=== PATIENT | female | born 1935 | race Caucasian/White ===

== ENCOUNTER → 2016-07-03 | Outpatient (CLI) | payer BC ==
[~2016-07-03] MED LIST: ACET-1311 PO; ASPCH81X PO; HYDR12.55 PO; SULF800T23 PO
--- NOTE | 2016-07-03 16:13 | MAMMOGRAPHY REPORT ---
BILATERAL DIGITAL SCREENING MAMMOGRAM TOMOSYNTHESIS WITH CAD: 07/03/2016 CLINICAL HISTORY: Routine screening. Patient has no complaints. TECHNIQUE: Breast tomosynthesis in addition to standard 2D mammography was performed. Current study was also evaluated with a Computer Aided Detection (CAD) system. COMPARISON: Comparison is made to exams dated: 06/26/2015 mammogram, 06/24/2014 mammogram, 05/05/2013 mammogram, 11/06/2012 mammogram, 05/05/2012 ultrasound, and 05/01/2012 mammogram - [facility]. BREAST COMPOSITION: There are scattered areas of fibroglandular density in both breasts. FINDINGS: Linear scar markers overlie the upper outer quadrant of each breast. There is expected ar chitectural distortion and associated surgical clips in the upper outer posterior right breast, yves ting the site of prior lumpectomy. Architectural distortion is less evident in the left upper outer quadrant. There is a stable benign intramammary lymph node in the superior posterior left breast o n the MLO view. Scattered benign calcifications in the breasts. No new suspicious mass, architectur al distortion or cluster of microcalcifications is seen. IMPRESSION: ACR BI-RADS CATEGORY 1: NEGATIVE There is no mammographic evidence of malignancy. A 1 year screening mammogram is recommended. The p atient will receive written notification of the results. Approximately 10% of breast cancers are not detected with mammography. A negative mammographic repor t should not delay biopsy if a clinically suggestive mass is present. Chelsea Patrick M.D. ay/:07/03/2016 12:56:35 Knitter Hand: Rowena Noguera, [facility] letter sent: Normal 1/2 BI-RADS Code: ACR BI-RADS Category 1: Negative
== END | disposition home or self-care (01) ==
LOC: C.MAMM 10:10
PROVIDERS: ATTEND Family Medicine
DX: Z12.31 Encounter for screening mammogram for malignant neoplasm of breast (principal); Z85.3 Personal history of malignant neoplasm of breast; Z08 Encounter for follow-up examination after completed treatment for malignant neoplasm

== ENCOUNTER → 2017-07-04 | Outpatient (CLI) | payer BC ==
--- NOTE | 2017-07-07 07:41 | MAMMOGRAPHY REPORT ---
BILATERAL DIGITAL SCREENING MAMMOGRAM TOMOSYNTHESIS WITH CAD: 07/04/2017 CLINICAL HISTORY: Asymptomatic. Personal history of breast cancer. TECHNIQUE: Breast tomosynthesis in addition to standard 2D mammography was performed. Current study was also evaluated with a Computer Aided Detection (CAD) system. COMPARISON: Comparison is made to exams dated: 07/03/2016 mammogram, 06/26/2015 mammogram, 06/24/2014 ma mmogram, 05/05/2013 mammogram, 05/05/2012 mammogram, and 05/05/2012 ultrasound - [facility] enter. BREAST COMPOSITION: There are scattered areas of fibroglandular density in both breasts. FINDINGS: No suspicious masses, calcifications, or areas of architectural distortion are noted in ei ther breast. There has been no significant interval change compared to prior exams. There are stable postoperative changes in the right upper inner quadrant from prior lumpectomy. There is also mild p ostsurgical architectural distortion in the left upper outer quadrant which is stable. Scattered maxime ateral benign appearing calcifications are not significantly changed. IMPRESSION: ACR BI-RADS CATEGORY 2: BENIGN There is no mammographic evidence of malignancy. A 1 year screening mammogram is recommended. The pa tient will receive written notification of the results. Approximately 10% of breast cancers are not detected with mammography. A negative mammographic report should not delay biopsy if a clinically suggestive mass is present. Zainab Russell M.D. /:07/04/2017 14:52:20 Ladle Liner: Debbie TERRY)(Paty), [facility] letter sent: Normal 1/2 BI-RADS Code: ACR BI-RADS Category 2: Benign
== END | disposition home or self-care (01) ==
LOC: C.MAMM 09:52
PROVIDERS: ATTEND Family Medicine
DX: Z12.31 Encounter for screening mammogram for malignant neoplasm of breast (principal); Z85.3 Personal history of malignant neoplasm of breast

== ENCOUNTER → 2017-08-11 | Day surgery (SDC) | payer BC ==
[2017-07-18 12:44] VITALS: Ht 167.6 cm; Wt 100.0 kg
[~2017-08-11] VITALS: Ht 167.6 cm; Wt 100.0 kg
[~2017-08-11] MED LIST changes: +500ML BSS 0.3ML EPI 1:1000PF IRRIG ONE; +ACETAMINOPHEN 325 MG TAB PO PRN; +AMVISC PLUS 0.8ML SYRINGE INT OCU ONE; +ATROPINE SULFATE 0.1 MG/ML 5ML SYR IV PRN; +BRIMONIDINE TART 0.2% OP SOLN PER DROP CHARGE ONE; +BSS FLUSH ONE; +ENDOCOAT 0.85ML SYRINGE INT OCU ONE; +EpHEDrine SULFATE INJ 50 MG/ML AMP IV PRN; +EpINEphrine INJ 1MG/ML AMP 1 MG/ML AMP ONE; -HYDR12.55 PO; +HYDR25TA4 PO; +LACTATED RINGER'S 1000ML 500 ML IV SCH; +LIDOCAINE 4% OP SOLN DROP CHARGE ONE; +LIDOCAINE 4% OP SOLN DROP CHARGE OPR SCH; +LIDOCAINE HCL 1% MPF 2 ML VIAL ONE; +MIDAZOLAM HCL 1 MG/ML 2ML VIAL ONE; +MOXIFLOXACIN OPH SOLN PER DROP CHARGE ONE; +ONDANSETRON INJ 2 MG/ML 2 ML VIAL IV PRN; +POVIDONE-IODINE OP SOLN 30 ML BTL ONE; +PROPARACAINE 0.5% OP SOLN PER DROP CHARGE OPR SCH; -SULF800T23 PO; +TOBRAMYCIN/DEXAMETHASONE OPH OINT PER APPLN CHARGE ONE; +TRIA0.022 EXT; +TRMO2580 TOP
[2017-08-11] MEDS: PHENYLEPHRINE HCL 2.5% OP SOLN PER DROP CHARGE OPR SCH ×2 (08:35→08:40)
[2017-08-11] MEDS: TROPICAMIDE 1% OP SOLN PER DROP CHARGE OPR SCH ×2 (08:36→08:41)
[2017-08-11] MEDS: CYCLOPENTOLATE HCL 1% OP SOLN PER DROP CHARGE OPR SCH ×2 (08:37→08:42)
[2017-08-11] MEDS: KETOROLAC 0.5% OP SOLN PER DROP CHARGE OPR SCH ×2 (08:38→08:42)
[2017-08-11] MEDS: MOXIFLOXACIN OPH SOLN PER DROP CHARGE OPR SCH ×2 (08:39→08:51)
--- NOTE | 2017-08-11 09:12 | History & Physical Bridge - SC ---
H&P Re-Evaluation Bridge Note: I have examined the patient, reviewed the History & Physical and in the interval since the performance of the History & Physical I have noted the following changes of clinical significance: No changes noted
--- NOTE | 2017-08-11 10:03 | [facility] Operative Report ---
Operative Report Operative Date Aug 11, 2017. Pre-Operative Diagnosis Right Eye Cataract Post-Operative Diagnosis same Procedure(s) Performed Right Cataract Phacoemulsification With Intraocular Lens Implant Surgeon Dr. Leila Castañeda Professor Of Finance Surgeon(s) 0 Estimated Blood Loss 0 Findings cataract right eye Fluids see anesthesia record Specimens none Drains None Anesthesia Type MAC Complication(s) none Disposition no Recovery Room / PACU Indications decreased vision right eye Description of Procedure After informed consent was obtained in the holding area the patient was wheeled back to the operating room where cardiac monitoring leads and oxygen by nasal cannula was administered by Anesthesia. Gentle IV sedation was given, and the patient's right eye was prepped and draped in usual sterile fashion. A wire lid speculum was placed into the right eye and the operating microscope was swung into position. Using 0.12 forceps and a Supersharp blade a paracentesis port was made 2 o'clock hours away from the 9 o'clock position of the patient's right eye. 1% non-preserved Lidocaine was then injected into the anterior chamber for anesthesia. A 2.0 mm keratotome blade was then used to make a shelved clear corneal incision at the 9 o'clock position of the right eye. Amvisc was injected into the anterior chamber and a cystotome and Utrata forceps were used to perform a curvilinear capsulorrhexis. BSS on a hydrodissection cannula was used to hydrodissect the lens nucleus away from the capsular bag. The phacoemulsification handpiece was then used in a stop and chop fashion to remove the lens nucleus. The irrigation and aspiration handpiece was then used to remove the residual cortical material. Amvisc was injected into the capsular bag and anterior chamber and a Bausch & Lomb MX60 23.5 Diopter intraocular lens was injected into the capsular bag. Irrigation and aspiration handpiece was used to remove the residual viscoelastic material. The wounds were hydrated and noted to be watertight. The wire lid speculum was removed from the eye. Vigamox, Brimonidine, and TobraDex ointment were placed on the eye and it was shielded. It should be noted that EndoCoat was used extensively during the case to protect the cornea endothelium. DISPOSITION: The patient tolerated the procedure well and was wheeled to the post anesthesia care unit in stable condition. I attest to the content of the Intraoperative Record and any orders documented therein. Any exceptions are noted below. I attest to the content of the Intraoperative Record and any orders documented therein. Any exceptions are noted below.
[2017-08-11 10:05] VITALS: TEMP 36.4
--- NOTE | 2017-08-11 10:05 | Discharge Instructions-SurgCtr ---
Discharge Instructions Date of Service Aug 11, 2017. Visit Reason for Visit: Cataract Right Eye Discharge Discharge Diagnosis / Problem: cataract right eye Discharge Goals Goal(s): Improve function Activity Recommendations Activity Limitations: per Instructions/Follow-up section Lifting Limitations: no more than 5 pounds Anesthesia . Post Anesthesia Instructions: If you have had General Anesthesia or IV Sedation: * Do not drive today. * Resume driving when surgeon permits. * Do not make important decisions or sign legal documents today. * Call surgeon for: 1. Temperature elevations greater than 101 degrees F. 2. Uncontrollable pain. 3. Excessive bleeding. 4. Persistent nausea and vomiting. 5. Medication intolerance (nausea, vomiting or rash). * For nausea and vomiting use only clear liquids such as: tea, soda, bouillon until nausea subsides, then gradually increase diet as tolerated. * If you have any concerns or questions, call your surgeon's office. If physician is unavailable and it is an emergency, call 911 or go to the nearest emergency room. . Instructions / Follow-Up Instructions / Follow-Up ACTIVITY RECOMMENDATIONS: * Light activities * You may walk outside, read, watch television. * Mild irritation and blurred vision are common for the first few days, redness around the white part of the eye is common. MEDICATIONS: Resume previous medications unless instructed otherwise by your surgeon. Eye drops (today and tomorrow): Cipro - one drop in operative eye every 2 hours while awake Prednisolone 1% - one drop in operative eye every 2 hours while awake Ilevro - one drop operative eye 1 times daily SPECIAL CARE INSTRUCTIONS: * If any problems or concerns, please call Dr. Castañeda's office at . * Keep plastic shield taped over eye to sleep at night. * Keep plastic shield taped over eye except to administer eye drops. * Keep plastic shield on until office visit the following day. FOLLOW UP VISIT: Follow-up with Dr. Castañeda in the [place] office as scheduled. If not already scheduled, please call the office at . Diet Recommendations Home Diet: resume previous diet Procedures Procedures Performed: Right Cataract Phacoemulsification With Intraocular Lens Implant Pending Studies Studies pending at discharge: no Medical Emergencies . Who to Call and When: Medical Emergencies: If at any time you feel your situation is an emergency, please call 911 immediately. . Non-Emergent Contact Non-Emergency issues call your: Hand Shoe Cutter . . "Provider Documentation" section prepared by Elpidio Castañeda. .
[2017-08-11 10:43] VITALS: BP 160/76; PULSE 84; O2SAT 97
--- NOTE | 2017-08-11 10:43 | Anesthesia Progress Nt - [facility] ---
Anesthesia Post Op Note Date & Time Aug 11, 2017 at 10:43 Vital Signs Pain Intensity: 0 Vital Signs Past 12 Hours Date Time Temp Pulse Resp B/P (MAP) Pulse Ox O2 Delivery O2 Flow Rate FiO2 08/11/17 10:05 36.4 86 16 168/75 (106) 98 Room Air 08/11/17 08:27 36.9 82 18 175/75 (108) 99 Room Air Notes Mental Status: alert / awake / arousable, participated in evaluation Pt Amnestic to Procedure: Yes Nausea / Vomiting: adequately controlled Pain: adequately controlled Airway Patency, RR, SpO2: stable & adequate BP & HR: stable & adequate Hydration State: stable & adequate Anesthetic Complications: no major complications apparent
== END | disposition home or self-care (01) ==
LOC: X.SURG 07:56
PROVIDERS: ATTEND Ophthalmology
DX: H26.9 Unspecified cataract (principal); I10 Essential (primary) hypertension; Z90.89 Acquired absence of other organs; Z79.82 Long term (current) use of aspirin; Z79.899 Other long term (current) drug therapy; Z80.3 Family history of malignant neoplasm of breast

== ENCOUNTER → 2017-08-25 | Day surgery (SDC) | payer BC ==
[2017-08-22 14:04] VITALS: Ht 167.6 cm; Wt 100.0 kg
[~2017-08-25] VITALS: Ht 167.6 cm; Wt 100.0 kg
[~2017-08-25] MED LIST changes: -EpHEDrine SULFATE INJ 50 MG/ML AMP IV PRN; +LIDOCAINE 4% OP SOLN DROP CHARGE OPL SCH; -LIDOCAINE 4% OP SOLN DROP CHARGE OPR SCH; -ONDANSETRON INJ 2 MG/ML 2 ML VIAL IV PRN; +PROPARACAINE 0.5% OP SOLN PER DROP CHARGE OPL SCH; -PROPARACAINE 0.5% OP SOLN PER DROP CHARGE OPR SCH
[2017-08-25] MEDS: PHENYLEPHRINE HCL 2.5% OP SOLN PER DROP CHARGE OPL SCH ×2 (09:07→09:12)
[2017-08-25] MEDS: TROPICAMIDE 1% OP SOLN PER DROP CHARGE OPL SCH ×2 (09:08→09:13)
[2017-08-25] MEDS: CYCLOPENTOLATE HCL 1% OP SOLN PER DROP CHARGE OPL SCH ×2 (09:09→09:14)
[2017-08-25] MEDS: KETOROLAC 0.5% OP SOLN PER DROP CHARGE OPL SCH ×2 (09:10→09:15)
[2017-08-25] MEDS: MOXIFLOXACIN OPH SOLN PER DROP CHARGE OPL SCH ×2 (09:11→09:24)
--- NOTE | 2017-08-25 10:40 | [facility] Operative Report ---
Operative Report Operative Date Aug 25, 2017. Pre-Operative Diagnosis Left eye cataract Post-Operative Diagnosis Same as preop Procedure(s) Performed Left Cataract Phacoemulsification With Intraocular Lens Implant Surgeon Dr. Castañeda Slide Attendant Surgeon(s) None Estimated Blood Loss 0 mL Findings cataract left eye Fluids see anesthesia record Specimens None Drains None Anesthesia Type MAC Complication(s) none Disposition no Recovery Room / PACU Indications decreased vision left eye Description of Procedure After informed consent was obtained in the holding area the patient was wheeled back to the operating room where cardiac monitoring leads and oxygen by nasal cannula was administered by Anesthesia. Gentle IV sedation was given, and the patient's left eye was prepped and draped in usual sterile fashion. A wire lid speculum was placed into the left eye and the operating microscope was swung into position. Using 0.12 forceps and a Supersharp blade a paracentesis port was made 2 o'clock hours away from the 3 o'clock position of the patient's left eye. 1% non-preserved Lidocaine was then injected into the anterior chamber for anesthesia. A 2.0 mm keratotome blade was then used to make a shelved clear corneal incision at the 3 o'clock position of the left eye. Amvisc was injected into the anterior chamber and a cystotome and Utrata forceps were used to perform a curvilinear capsulorrhexis. BSS on a hydrodissection cannula was used to hydrodissect the lens nucleus away from the capsular bag. The phacoemulsification handpiece was then used in a stop and chop fashion to remove the lens nucleus. The irrigation and aspiration handpiece was then used to remove the residual cortical material. Amvisc was injected into the capsular bag and anterior chamber and a Bausch & Lomb MX60 23.5 Diopter intraocular lens was injected into the capsular bag. Irrigation and aspiration handpiece was used to remove the residual viscoelastic material. The wounds were hydrated and noted to be watertight. The wire lid speculum was removed from the eye. Vigamox, Brimonidine, and TobraDex ointment were placed on the eye and it was shielded. It should be noted that EndoCoat was used extensively during the case to protect the cornea endothelium. DISPOSITION: The patient tolerated the procedure well and was wheeled to the post anesthesia care unit in stable condition. I attest to the content of the Intraoperative Record and any orders documented therein. Any exceptions are noted below. I attest to the content of the Intraoperative Record and any orders documented therein. Any exceptions are noted below.
[2017-08-25 10:42] VITALS: TEMP 36.4
--- NOTE | 2017-08-25 10:42 | Discharge Instructions-SurgCtr ---
Discharge Instructions Date of Service Aug 25, 2017. Visit Reason for Visit: Cataract Left Eye Discharge Discharge Diagnosis / Problem: cataract left eye Discharge Goals Goal(s): Improve function Activity Recommendations Activity Limitations: per Instructions/Follow-up section Lifting Limitations: no more than 5 pounds Anesthesia . Post Anesthesia Instructions: If you have had General Anesthesia or IV Sedation: * Do not drive today. * Resume driving when surgeon permits. * Do not make important decisions or sign legal documents today. * Call surgeon for: 1. Temperature elevations greater than 101 degrees F. 2. Uncontrollable pain. 3. Excessive bleeding. 4. Persistent nausea and vomiting. 5. Medication intolerance (nausea, vomiting or rash). * For nausea and vomiting use only clear liquids such as: tea, soda, bouillon until nausea subsides, then gradually increase diet as tolerated. * If you have any concerns or questions, call your surgeon's office. If physician is unavailable and it is an emergency, call 911 or go to the nearest emergency room. . Instructions / Follow-Up Instructions / Follow-Up ACTIVITY RECOMMENDATIONS: * Light activities * You may walk outside, read, watch television. * Mild irritation and blurred vision are common for the first few days, redness around the white part of the eye is common. MEDICATIONS: Resume previous medications unless instructed otherwise by your surgeon. Eye drops (today and tomorrow): Cipro - one drop in operative eye every 2 hours while awake Prednisolone 1% - one drop in operative eye every 2 hours while awake Ilevro - one drop operative eye 1 times daily SPECIAL CARE INSTRUCTIONS: * If any problems or concerns, please call Dr. Castañeda's office at . * Keep plastic shield taped over eye to sleep at night. * Keep plastic shield taped over eye except to administer eye drops. * Keep plastic shield on until office visit the following day. FOLLOW UP VISIT: Follow-up with Dr. Castañeda in the [place] office as scheduled. If not already scheduled, please call the office at . Diet Recommendations Home Diet: resume previous diet Procedures Procedures Performed: Left Cataract Phacoemulsification With Intraocular Lens Implant Pending Studies Studies pending at discharge: no Medical Emergencies . Who to Call and When: Medical Emergencies: If at any time you feel your situation is an emergency, please call 911 immediately. . Non-Emergent Contact Non-Emergency issues call your: Appliance Line Assembler . . "Provider Documentation" section prepared by Elpidio Castañeda. .
[2017-08-25 11:04] VITALS: BP 153/81; PULSE 84; O2SAT 96
--- NOTE | 2017-08-25 11:12 | Anesthesia Progress Nt - [facility] ---
Anesthesia Post Op Note Date & Time Aug 25, 2017 at 11:12 Vital Signs Pain Intensity: 0 Vital Signs Past 12 Hours Date Time Temp Pulse Resp B/P (MAP) Pulse Ox O2 Delivery O2 Flow Rate FiO2 08/25/17 11:04 84 16 153/81 (105) 96 Room Air 08/25/17 10:42 36.4 81 16 176/77 (110) 100 Room Air 08/25/17 08:56 37.0 68 20 144/64 (90) 100 Room Air Notes Mental Status: alert / awake / arousable, participated in evaluation Pt Amnestic to Procedure: Yes Nausea / Vomiting: adequately controlled Pain: adequately controlled Airway Patency, RR, SpO2: stable & adequate BP & HR: stable & adequate Hydration State: stable & adequate Anesthetic Complications: no major complications apparent
== END | disposition home or self-care (01) ==
LOC: X.SURG 08:46
PROVIDERS: ATTEND Ophthalmology
DX: H25.12 Age-related nuclear cataract, left eye (principal); I10 Essential (primary) hypertension; Z85.3 Personal history of malignant neoplasm of breast; Z79.899 Other long term (current) drug therapy

== ENCOUNTER 2018-07-21 12:39 | Inpatient (IN) ==
[2018-07-21] MEDS ORDERED: SODIUM CHLORIDE 0.9% 1000ML 1,000 ML IV ONE ×2 (13:38→14:50)
[2018-07-21] MEDS ORDERED: cefTRIAXone SODIUM 1,000 MG/50 ML BAG IV STA (13:43)
[2018-07-21 13:55] LABS: Basophils # (auto) 0.01 K/uL (0-0.2); Basophils % (auto) 0.1 %; Hematocrit (blood only) 42.5 % (37-47); Hemoglobin 14.1 g/dL (12.0-16.0); Immature Granulocytes # (auto) 0.09 K/uL (0.00-0.02); Immature Granulocytes % (auto) 0.5 %; Lymphocytes # (auto) 0.65 K/uL (1.2-3.4); Lymphocytes % (auto) 3.7 %; Mean Corpuscular Hgb Conc 33.2 g/dL (32-36); Mean Corpuscular Volume 87.4 fL (80-100); Mean Platelet Volume 10.3 fL (7.4-10.4); Monocytes % (auto) 5.1 %; Neutrophils % (auto) 90.6 %; Platelet Count 271 K/uL (130-400); RDW Coefficient of Variation 14.6 % (11.5-14.5); RDW Standard Deviation 46.8 fL (36.4-46.3); Red Blood Count 4.86 M/uL (4.2-5.4); White Blood Count 17.55 K/uL (4.8-10.8)
[2018-07-21 14:03] LABS: Albumin Level 3.6 gm/dl (3.4-5.0); BUN Creatinine Ratio 30.7 (10-20); Calcium 8.8 mg/dl (8.5-10.1); Creatinine Clr Calc Pharmacy 53.3 ml/min; Est GFR (African American) 65.9; Est GFR (Non-African American) 56.8; INR 1.3 (0.9-1.1); Partial Thromboplastin Time 28.1 Seconds (21.0-31.0); Potassium 3.3 mmol/L (3.5-5.1)
--- NOTE | 2018-07-21 14:05 | XRay Report ---
XR chest 1V portable CLINICAL HISTORY: 83 years-old Female presenting with Sepsis. TECHNIQUE: Portable upright AP view of the chest was obtained. COMPARISON: 10/07/2012. FINDINGS: Atherosclerosis of the aortic arch. Cardiac silhouette enlarged. Mild pulmonary vessel prominence. Yang rgical clips project over the right lung base likely within the right breast. No focal lung opacity. Density at the left lung base likely due to cardiomegaly. No large effusion or pneumothorax. Possible underlying osteopenia. Degenerative changes of the spine. IMPRESSION: 1. Cardiomegaly with volume overload. No cheri pulmonary edema. No focal infiltrate to suggest pneum onia. Electronically signed by: Sly Moore M.D. 07/21/2018 2:04 PM
[2018-07-21 14:07] LABS: Albumin Globulin Ratio 0.9 (0.9-2); Bilirubin,Total 1.1 mg/dl (0.2-1); Globulin 4.1 gm/dl (2.5-4.0); Total Protein 7.7 gm/dl (6.4-8.2); Troponin I 0.027 ng/ml (0-0.045)
--- NOTE | 2018-07-21 14:17 | XRay Report ---
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 Deminer alized appearance of the bones. Vascular calcifications about the calf are noted. Marginal spurring o f the calcaneus. No acute fracture or dislocation. Degenerative changes about the midfoot and hindfoo t. Moderate soft tissue swelling about the calf and lower leg. IMPRESSION: 1. Soft tissue swelling without acute fracture or dislocation. 2. Degenerative changes as above. The above report was generated using voice recognition software. It may contain grammatical, syntax o r spelling errors. Electronically signed by: Aleksandar Daniels M.D. 07/21/2018 2:15 PM
[2018-07-21] MEDS ORDERED: ACETAMINOPHEN 500 MG TAB PO STA (14:27)
--- NOTE | 2018-07-21 14:30 | CT Scan Report ---
CT head/brain wo con CLINICAL HISTORY: 83 years-old Female presenting with ams. TECHNIQUE: Multidetector CT imaging of the head was performed without the use of intravenous contrast . IV contrast: None. One or more dose lowering techniques were used consistent with the principles of ALARA (as low as reasonably achievable), including automatic exposure control, mA or kV adjustment t o individual patient size, and/or use of iterative reconstruction. COMPARISON: None. CT DOSE (mGy.cm): The estimated cumulative dose is 537.48 mGy.cm. FINDINGS: Blind Stitch Machine Operator topogram: Unremarkable. Ventricles and sulci normal in size. No hemorrhage. Apparent subtle hypodensity in the bilateral ante rior temporal lobes in the periventricular and medial portions. Remainder of the brain parenchyma nor mal. No acute territorial infarct. No mass effect or midline shift. No extra-axial fluid collection. Paranasal sinuses and mastoid air cells clear. Calvarium intact. Bilateral mary's igloo lenses are absent. IMPRESSION: 1. Apparent hypodense brain parenchyma the anterior medial temporal lobes. This is felt to most like ly be artifactual from being hardening artifact at the skull base. However, if there are infectious s ymptoms or clinical concern for encephalitis, then MRI of the brain is recommended. No other evidence of acute intracranial pathology. Electronically signed by: Sly Moore M.D. 07/21/2018 2:29 PM
[2018-07-21 14:46] LABS: Influenza A virus by PCR Neg for Influ A (Neg); Influenza B virus by PCR Neg for Influ B (Neg)
[2018-07-21 15:31] LABS: Appearance Urine Cloudy (Clear); Bilirubin Urine Negative (Negative); Color Urine Dark Yellow; Epithelial Cell Urine Auto >30 /lpf (0-5); Glucose Urine UA Negative (Negative); Ketones Urine Negative (Negative); Leukocyte Esterase Urine Trace (Negative); Nitrite Urine Negative (Negative); Protein Urine 1+ (Negative); Specific Gravity Urine 1.029 (1.000-1.030); Urobilinogen Urine Negative (Negative)
--- NOTE | 2018-07-21 15:43 | Ultrasound Report ---
US venous doppler LE RT CLINICAL HISTORY: Right leg swelling COMPARISON STUDY: No previous studies for comparison. FINDINGS: Real-time and color flow Doppler imaging were performed. Flow was seen within the femoral, popliteal and calf veins with no intraluminal thrombus demonstrated. The saphenous vein is patent. IMPRESSION: No evidence of right lower extremity DVT. Electronically signed by: Ronald Hargrove M.D. 07/21/2018 3:42 PM
--- NOTE | 2018-07-21 15:58 | History & Physical Report ---
Date of Service July 21, 2018 Assessment & Plan (1) Cellulitis: (2) Sepsis: - Admit to med/surg with tele due to elevated HR, BP - Will continue on rocephin IV - Lactic acid=2.36, will recheck to ensure resolvement - Tmax=39.4 now trending downward, tylenol prn - WBC elevated at 17.55, trend am cbc - BCx x 2, follow - Wound consult for cellulitis and open blister wounds, should have outpatient follow up arranged upon discharge - U/S negative for DVT with increased edema of the RLE (3) HX: breast cancer: - Stable, s/p breast cancer. (4) Venous stasis dermatitis of both lower extremities: - Chronic, adding to increased potential for cellulitis. (5) Osteoarthritis: - Son reports patient only uses tylenol as outpatient, states she need better pain control. Will see if pt would be a candidate NSAID therapy once more awake. (6) Obesity (BMI 30-39.9): - Diet and exercise to be encouraged once oriented. (7) DVT prophylaxis: - lovenox subq History of Present Illness Chief Complaint: AMS Primary Care Provider: Lin Simmons DO This is a 83 yo F with PMHx of HTN, breast cancer s/p XRT, venous stasis ulceration, hx of cellulitis, uterine fibroids who presents with acute onset of altered mental status. The patients son is present at bedside and supports the history as the patient is unable to due to AMS. He states she lives independently and cares for her , and typically can perform normal ADLs without difficulty. This morning he was called by neighbors of the patient and reported that she was unable to stand up. It is unknown if these neighbors presented to their home, or exactly how this came to be found, but once the son was called, so was EMS. Son notes the pt has had bouts of cellulitis in the past but has been treated conservatively. There is no known injury to have caused cellulitis at this point, but there are several areas of blisters which have bandages on it. The patient is also a patient in the ER bay next to her, as she was not managing her husbands insulin due to AMS. Vitals upon admission were Tmax = 39.4 , elevated HR = 102, BP 147/66, and have all now improved. Imaging of the head, chest and knee were performed and are without acute findings. WBC elevated at 17.55 and potassium is slightly low at 3.3, other electrolytes are WNL. Past Surgical Hx: 1. Left breast biopsy. 2. Right breast biopsy. 3. Dilatation and curettage. 4. She also has had colonoscopy in 2009. Allergies Allergy/AdvReac Type Severity Reaction Status Date / Time No Known Allergies Allergy Unverified 07/21/18 13:05 Home Medications Home Medications Medication Instructions Recorded Confirmed Type acetaminophen [Tylenol] 650 mg PO Q6H PRN 07/21/18 07/21/18 History aspirin 81 mg PO QAM 07/21/18 07/21/18 History triamcinolone acetonide 1 applic TOPICAL BID 07/21/18 07/21/18 History Past Med/Surg History Medical History Osteoarthritis Venous stasis dermatitis of both lower extremities HX: breast cancer Obesity (BMI 30-39.9) Altered mental status (Acute) DVT prophylaxis Cellulitis (Acute) Social History Current Living Situation: Spouse Other Information That Helps Us Care for You: No Feels Safe at Home: Yes Safety Concerns: Feels Safe At This Time Smoking Status: Never smoker Hx Alcohol Use: No Hx Substance Use: No Beliefs That Will Affect Care: None Preferred Language: Algerian Internal Communications Writer Required: No Review of Systems Unobtainable due to cognitive status Physical Exam 2 Vital Signs (Past 24 Hours): Last Vital Signs Temp 39.4 C H 07/21/18 12:48 Pulse 97 H 07/21/18 13:57 Resp 27 H 07/21/18 13:57 BP 142/49 H 07/21/18 13:57 Pulse Ox 93 07/21/18 13:57 Physical Exam: General: awake, alert, no apparent distress, + obese Head: Normocephalic, atraumatic ENT: PERRL, EOMI, no pharyngeal exudate, mucous membranes moist Chest: Clear to auscultation, diminished breath sounds at bases, on room air, no adventitious breath sounds Cardiac: Regular rate and rhythm, no murmur, no JVD, normal peripheral pulses, good capillary refill Abdominal: NABS x 4 quadrants, soft, nontender to palpation, no rebound, guarding or tenderness Extremities: + Erythematous RLE with multiple fluid blisters on calf, + warmth and erythema extends from ankle to right below the knee, it does not involve the foot. + chronic venous stasis changes bilaterally, with mild erythema involving the ankle on the left foot but no warmth. Neuro: Awakens to verbal stimuli, knows she is in a hospital, is not oriented to date/year or her son who is in the room. speech is clear Constitutional: WD/WN, vitals as above Eyes: normal visual bear by confrontation and + anicteric sclerae Neck: normal visual inspection and trachea midline Respiratory: normal respiratory effort, lungs clear to auscultation Cardiovascular: Rate/Rhythm: regular rate and regular rhythm Gastrointestinal (Abdomen): Inspection/Auscultation: abdomen not distended Percussion/Palpation: abdomen soft; abdomen nontender Musculoskeletal: Head/Neck/Chest: normocephalic and head atraumatic Trace LE edema, + pedal pulses Skin: no rashes, warm and dry R LE redness Neurologic: awake; not confused Speech / Cognition: normal speech Psychiatric: A+Ox3, euthymic affect (initially answered 2011 for year but did correct to 2018, knows it is July and at [facility]) Lymphatic: Exam as done by Matilde Nova DO Results & Data Diagnostic Findings XR chest 1V portable CLINICAL HISTORY: 83 years-old Female presenting with Sepsis. TECHNIQUE: Portable upright AP view of the chest was obtained. COMPARISON: 10/07/2012. FINDINGS: Atherosclerosis of the aortic arch. Cardiac silhouette enlarged. Mild pulmonary vessel prominence. Surgical clips project over the right lung base likely within the right breast. No focal lung opacity. Density at the left lung base likely due to cardiomegaly. No large effusion or pneumothorax. Possible underlying osteopenia. Degenerative changes of the spine. IMPRESSION: 1. Cardiomegaly with volume overload. No cheri pulmonary edema. No focal infiltrate to suggest pneumonia. CT head/brain wo con CLINICAL HISTORY: 83 years-old Female presenting with ams. TECHNIQUE: Multidetector CT imaging of the head was performed without the use of intravenous contrast. IV contrast: None. One or more dose lowering techniques were used consistent with the principles of ALARA (as low as reasonably achievable), including automatic exposure control, mA or kV adjustment to individual patient size, and/or use of iterative reconstruction. COMPARISON: None. CT DOSE (mGy.cm): The estimated cumulative dose is 537.48 mGy.cm. FINDINGS: Instructional Facilitator topogram: Unremarkable. Ventricles and sulci normal in size. No hemorrhage. Apparent subtle hypodensity in the bilateral anterior temporal lobes in the periventricular and medial portions. Remainder of the brain parenchyma normal. No acute territorial infarct. No mass effect or midline shift. No extra-axial fluid collection. Paranasal sinuses and mastoid air cells clear. Calvarium intact. Bilateral redding lenses are absent. IMPRESSION: 1. Apparent hypodense brain parenchyma the anterior medial temporal lobes. This is felt to most likely be artifactual from being hardening artifact at the skull base. However, if there are infectious symptoms or clinical concern for encephalitis, then MRI of the brain is recommended. No other evidence of acute intracranial pathology. 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 Demineralized appearance of the bones. Vascular calcifications about the calf are noted. Marginal spurring of the calcaneus. No acute fracture or dislocation. Degenerative changes about the midfoot and hindfoot. Moderate soft tissue swelling about the calf and lower leg. IMPRESSION: 1. Soft tissue swelling without acute fracture or dislocation. 2. Degenerative changes as above. US venous doppler LE RT CLINICAL HISTORY: Right leg swelling COMPARISON STUDY: No previous studies for comparison. FINDINGS: Real-time and color flow Doppler imaging were performed. Flow was seen within the femoral, popliteal and calf veins with no intraluminal thrombus demonstrated. The saphenous vein is patent. IMPRESSION: No evidence of right lower extremity DVT. ECG Additional Comments: 21-JUL-2018 13:06:12 [facility] Normal sinus rhythm Moderate voltage criteria for LVH, may be normal variant Borderline ECG When compared with ECG of 07-OCT-2012 12:13, No significant change was found Vent. rate 95 BPM WA interval 186 ms QRS duration 96 ms QT/QTc 362/454 ms P-R-T axes 23 -12 36 Code Status & VTE Plan Code Status FULL Supervising Physician Co-Signing Physician Notes Pt seen and examined by me. Denies chest pain or SOB. Tolerating PO without issue. Has pain to her R LE "in one spot". Family is not present. Agree with HPI/ROS as noted by PA See above for my exam in PE section Agree with plan as outlined above R LE cellulitis leading to AMS Likely sepsis pt is fairly healthy otherwise
[2018-07-21 16:07] LABS: Bacteria Urine Automated 1+ (Negative)
[2018-07-21 16:09] LABS: Mucus Urine Present (None Prsent)
[2018-07-21] MEDS ORDERED: ACETAMINOPHEN 325 MG TAB PO PRN (17:44)
[2018-07-21] MEDS ORDERED: ONDANSETRON INJ 2 MG/ML 2 ML VIAL IV PRN (17:44)
[2018-07-21] MEDS: SODIUM CHLORIDE 0.9% 1000ML 1,000 ML IV SCH (18:48)
[2018-07-21] MEDS: TRIAMCINOLONE ACET 0.1% CR 15 GM TUBE TOP SCH (20:25)
[2018-07-22] MEDS: SODIUM CHLORIDE 0.9% 1000ML 1,000 ML IV SCH (05:02)
[2018-07-22 08:19] LABS: Hematocrit (blood only) 40.7 % (37-47); Hemoglobin 13.1 g/dL (12.0-16.0); Mean Corpuscular Hgb Conc 32.2 g/dL (32-36); Mean Corpuscular Volume 88.5 fL (80-100); Platelet Count 208 K/uL (130-400); RDW Coefficient of Variation 15.1 % (11.5-14.5); RDW Standard Deviation 48.6 fL (36.4-46.3); White Blood Count 11.16 K/uL (4.8-10.8)
[2018-07-22 08:50] LABS: Albumin Level 2.8 gm/dl (3.4-5.0); BUN Creatinine Ratio 43.6 (10-20); Calcium 8.1 mg/dl (8.5-10.1); Creatinine Clr Calc Pharmacy 75.6 ml/min; Est GFR (African American) 95.2; Est GFR (Non-African American) 82.1; Potassium 3.1 mmol/L (3.5-5.1)
[2018-07-22 08:56] LABS: Albumin Globulin Ratio 0.8 (0.9-2); Bilirubin,Total 0.5 mg/dl (0.2-1); Globulin 3.5 gm/dl (2.5-4.0); Total Protein 6.3 gm/dl (6.4-8.2)
[2018-07-22] MEDS: cefTRIAXone SODIUM 1,000 MG/50 ML BAG IV SCH (09:08)
[2018-07-22] MEDS: ASPIRIN 81 MG ECTAB PO SCH (09:08)
[2018-07-22] MEDS: TRIAMCINOLONE ACET 0.1% CR 15 GM TUBE TOP SCH ×2 (09:08→21:39)
[2018-07-22] MEDS ORDERED: POTASSIUM CHLORIDE 20 MEQ TABCR PO STA (10:58)
--- NOTE | 2018-07-22 13:37 | Hospitalist Progress Note ---
Date of Service July 22, 2018 Assessment & Plan (1) Cellulitis: (2) Sepsis: - secondary to cellulitis with metabolic encephalopathy on admission that is now resolved - Will continue on rocephin IV - Lactic acid=2.36 on admission - Tmax=39.4 on admission - afebrile since - WBC elevated at 17.55 on admission and trended down - BCx x 2, follow - Wound consult for cellulitis and open blister wounds - patients [place] was 1.1 - should have outpatient follow up arranged upon discharge - U/S negative for DVT with increased edema of the RLE - (3) HX: breast cancer: - Stable, s/p breast cancer. (4) Venous stasis dermatitis of both lower extremities: - Chronic, adding to increased potential for cellulitis. - [place] 1.1 per WC nurse (5) Osteoarthritis: - pain is tolerable per patient (6) Obesity (BMI 30-39.9): - Diet and exercise encouraged (7) Diastolic dysfunction: Evidence of fluid overload on admission CXR, no sob or hypoxia. Fine crackles on the left. Given septic picture on admission, will hold off on any diuretic, no further IVF (8) DVT prophylaxis: - lovenox subq Subjective Ms. Ding is feeling much better today, she is alert and oriented. Her right leg continues to be painful. She has not been febrile since admission. Review of Systems All systems reviewed & are unremarkable except as noted in HPI & below Physical Exam 2 Vital Signs (Past 24 Hours): Last Vital Signs Temp 36.9 C 07/22/18 11:23 Pulse 77 07/22/18 11:23 Resp 18 07/22/18 11:23 BP 100/64 07/22/18 11:23 Pulse Ox 96 07/22/18 11:23 Physical Exam: General: no distress Eyes: normal inspection, PERLL Respiratory: chest non tender, clear to auscultation, normal breath sounds, no respiratory distress, no accessory muscle use Cardiac: regular rate and rhythm, no rub or gallop, no murmur, no jvd GI/: active bowel sounds, no abd pain or tenderness, soft, non distended Extremities: normal range of motion, normal strength, non tender Neuro/Psych: alert and oriented x 3, normal mood and affect Skin: normal color, dry, right leg with erythema and 3+ pitting edema below the knee, two open areas posterior calf without drainage. Results & Data Laboratory Results Abnormal lab results 07/21/18 07/21/18 07/21/18 Range/Units 12:55 12:55 12:55 WBC 17.55 H (4.8-10.8) K/uL RDW Std Deviation 46.8 H (36.4-46.3) fL RDW Coeff of Trini 14.6 H (11.5-14.5) % Immature Gran # (Auto) 0.09 H (0.00-0.02) K/uL Neut # (Auto) 15.90 H (1.4-6.5) K/uL Lymph # (Auto) 0.65 L (1.2-3.4) K/uL Kenton # (Auto) 0.90 H (0.11-0.59) K/uL PT 13.0 H (9.0-12.0) Seconds INR 1.3 H (0.9-1.1) Potassium 3.3 L (3.5-5.1) mmol/L BUN 29 H (7-18) mg/dl BUN/Creatinine Ratio 30.7 H (10-20) Glucose 157 H (70-99) mg/dl POC Lactic Acid Larry (0.90-1.70) mmol/L Calcium (8.5-10.1) mg/dl Total Bilirubin 1.1 H (0.2-1) mg/dl AST 12 L (15-37) U/L Total Protein (6.4-8.2) gm/dl Albumin (3.4-5.0) gm/dl Globulin 4.1 H (2.5-4.0) gm/dl Albumin/Globulin Ratio (0.9-2) Procalcitonin (0-0.5) ng/ml Urine Appearance (Clear) Urine Protein (Negative) Urine Blood (Negative) Ur Leukocyte Esterase (Negative) Urine WBC (Auto) (0-5) /hpf U Hyaline Cast (Auto) (0-5) /lpf U Epithel Cells (Auto) (0-5) /lpf Urine Bacteria (Auto) (Negative) Urine Mucus (None Prsent) 07/21/18 07/21/18 07/21/18 Range/Units 12:55 14:00 15:11 WBC (4.8-10.8) K/uL RDW Std Deviation (36.4-46.3) fL RDW Coeff of Trini (11.5-14.5) % Immature Gran # (Auto) (0.00-0.02) K/uL Neut # (Auto) (1.4-6.5) K/uL Lymph # (Auto) (1.2-3.4) K/uL Kenton # (Auto) (0.11-0.59) K/uL PT (9.0-12.0) Seconds INR (0.9-1.1) Potassium (3.5-5.1) mmol/L BUN (7-18) mg/dl BUN/Creatinine Ratio (10-20) Glucose (70-99) mg/dl POC Lactic Acid Larry 2.36 H (0.90-1.70) mmol/L Calcium (8.5-10.1) mg/dl Total Bilirubin (0.2-1) mg/dl AST (15-37) U/L Total Protein (6.4-8.2) gm/dl Albumin (3.4-5.0) gm/dl Globulin (2.5-4.0) gm/dl Albumin/Globulin Ratio (0.9-2) Procalcitonin 1.91 H (0-0.5) ng/ml Urine Appearance Cloudy H (Clear) Urine Protein 1+ H (Negative) Urine Blood 1+ H (Negative) Ur Leukocyte Esterase Trace H (Negative) Urine WBC (Auto) 10-30 H (0-5) /hpf U Hyaline Cast (Auto) 10-30 H (0-5) /lpf U Epithel Cells (Auto) >30 H (0-5) /lpf Urine Bacteria (Auto) 1+ H (Negative) Urine Mucus Present H (None Prsent) 07/22/18 07/22/18 Range/Units 07:55 07:55 WBC 11.16 H (4.8-10.8) K/uL RDW Std Deviation 48.6 H (36.4-46.3) fL RDW Coeff of Trini 15.1 H (11.5-14.5) % Immature Gran # (Auto) (0.00-0.02) K/uL Neut # (Auto) (1.4-6.5) K/uL Lymph # (Auto) (1.2-3.4) K/uL Kenton # (Auto) (0.11-0.59) K/uL PT (9.0-12.0) Seconds INR (0.9-1.1) Potassium 3.1 L (3.5-5.1) mmol/L BUN 28 H (7-18) mg/dl BUN/Creatinine Ratio 43.6 H (10-20) Glucose 108 H (70-99) mg/dl POC Lactic Acid Larry (0.90-1.70) mmol/L Calcium 8.1 L (8.5-10.1) mg/dl Total Bilirubin (0.2-1) mg/dl AST (15-37) U/L Total Protein 6.3 L (6.4-8.2) gm/dl Albumin 2.8 L (3.4-5.0) gm/dl Globulin (2.5-4.0) gm/dl Albumin/Globulin Ratio 0.8 L (0.9-2) Procalcitonin (0-0.5) ng/ml Urine Appearance (Clear) Urine Protein (Negative) Urine Blood (Negative) Ur Leukocyte Esterase (Negative) Urine WBC (Auto) (0-5) /hpf U Hyaline Cast (Auto) (0-5) /lpf U Epithel Cells (Auto) (0-5) /lpf Urine Bacteria (Auto) (Negative) Urine Mucus (None Prsent) _ (1) Cellulitis Laterality: unspecified laterality Site of cellulitis: extremity Site of cellulitis of extremity: lower extremity Site of cellulitis of trunk: Qualified Code(s): L03.119 - Cellulitis of unspecified part of limb (2) Sepsis Sepsis type: sepsis due to unspecified organism Qualified Code(s): A41.9 - Sepsis, unspecified organism
--- NOTE | 2018-07-22 18:35 | Emergency Department Note ---
Entered by Israel Camilo acting as a scribe for Trish Clarke DO History of Present Illness General Chief complaint: Swelling/Edema to Extremity Time Seen by Provider: 07/21/18 13:18 Source: patient and family History of Present Illness Onset (ago): week(s) (worsening in past week) Location: lower extremity Pain Consistency: + other (persistent) Quality: + other (soreness, swelling, redness) Associated symptoms: no chest pain, no loss of appetite and no shortness of breath The patient is an 83 year old female who presents to the Emergency Room with complaints of persistent soreness of both legs, worse in the right. The patient states that she has had difficulties with wounds on her legs for the past couple years. She states that she used to follow wound care but not recently. She notes that her redness, swelling, and pain have recently become worse over the past week, primarily in the right leg. She states that she has not felt any fevers and could not tell she had one today until it was recorded in the ER. She denies loss of appetite or decreased fluid intake. Family reports that the patient appears more confused than baseline. The patient denies chest pain, abdominal pain, shortness of breath, diarrhea, changes in bowel movements, or a history of diabetes. Home Medications Home Medications Medication Instructions Recorded Confirmed Type acetaminophen [Tylenol] 650 mg PO Q6H PRN 07/21/18 07/21/18 History aspirin 81 mg PO QAM 07/21/18 07/21/18 History triamcinolone acetonide 1 applic TOPICAL BID 07/21/18 07/21/18 History Allergies Allergy/AdvReac Type Severity Reaction Status Date / Time No Known Allergies Allergy Unverified 07/21/18 13:05 Past Med/Surg History Medical History Osteoarthritis Venous stasis dermatitis of both lower extremities HX: breast cancer Obesity (BMI 30-39.9) Altered mental status (Acute) DVT prophylaxis Cellulitis (Acute) Social History marital status: Current Living Situation: Spouse Other Information That Helps Us Care for You: No Feels Safe at Home: Yes Safety Concerns: Feels Safe At This Time Smoking Status: Never smoker Hx Alcohol Use: No Hx Substance Use: No Beliefs That Will Affect Care: None Communication Ability: Effective Review of Systems See HPI for pertinent positives & negatives. and A total of 10 systems reviewed and were otherwise negative Physical Exam Vital Signs Vital Signs - 24 hr 07/21/18 18:53 07/21/18 19:15 07/21/18 23:00 Temperature 37.2 C 37.1 C Pulse Rate 82 67 77 Respiratory Rate 18 18 Blood Pressure 105/54 L 95/61 L Pulse Oximetry 94 95 07/22/18 01:07 07/22/18 04:00 07/22/18 07:30 Temperature 37.2 C 37.3 C Pulse Rate 73 77 74 Respiratory Rate 18 20 Blood Pressure 91/58 L 121/65 Pulse Oximetry 92 91 07/22/18 11:23 07/22/18 14:42 Temperature 36.9 C 37.7 C H Pulse Rate 77 81 Respiratory Rate 18 18 Blood Pressure 100/64 94/55 L Pulse Oximetry 96 94 GENERAL: alert but confused, ill appearing, well nourished, no distress, non- toxic EYE EXAM: normal conjunctiva, PERRL and EOM's grossly intact OROPHARYNX: no exudate, no erythema, lips, buccal mucosa, and tongue normal and mucous membranes are dry NECK: supple, no nuchal rigidity, no adenopathy, non-tender LUNGS: Clear to auscultation. Normal chest wall mechanics, no w/r/r HEART: 3/6 systolic ejection murmur, S1 normal and S2 normal ABDOMEN: abdomen soft, non-tender, normo-active bowel sounds, no masses, no rebound or guarding. BACK: Back is symmetrical on inspection and there is no deformity, no midline tenderness, no CVA tenderness. SKIN: no rashes and no bruising UPPER EXTREMITIES: upper extremities are grossly normal. Nml pulses b/l. LOWER EXTREMITIES: Normal distal pulses bilaterally. Right distal lower extremities with obvious erythema, edema, and increased warmth noted. Erythema extending along the medial aspect up to the level of the knee. No calf tenderness. NEURO EXAM: Normal sensorium, cranial nerves II-XII grossly intact, normal speech, no gross weakness of arms, no gross weakness of legs. Gross sensation intact. Course 1323: Past medical records reviewed. The patient was evaluated in room B11B, and a complete history and physical examination were performed. 1535: I updated the patient and family on results. 1548: I consulted Dr. Nova � [facility] Hospitalist. She will reevaluate the patient for hospitalization. Consultations Consultation #1: I consulted Dr. Nova � [facility] Hospitalist. She will reevaluate the patient for hospitalization. Time: 15:48 Administered Medications Aspirin (Ecotrin Ectab) 81 mg PO QAM NAN Stop: 08/21/18 08:59 Last Admin: 07/22/18 09:08 Dose: 81 mg Ceftriaxone Sodium (Rocephin) 1,000 mg in 50 mls @ 100 mls/hr IV DAILY NAN Stop: 08/01/18 08:59 Last Infusion: 07/22/18 09:43 Dose: 0 mls/hr Admin: 07/22/18 09:08 Dose: 100 mls/hr Triamcinolone Acetonide (Kenalog 0.1%) 1 appln TOP BID NAN Stop: 08/20/18 20:59 Last Admin: 07/22/18 09:08 Dose: 1 appln Admin: 07/21/18 20:25 Dose: 1 appln Discontinued Medications Acetaminophen (Tylenol) 1,000 mg PO NOW STA Stop: 07/21/18 14:28 Last Admin: 07/21/18 14:54 Dose: 1,000 mg Sodium Chloride (Nss 1000ml) 1,000 mls @ 999 mls/hr IV .Q1H1M ONE Stop: 07/21/18 14:38 Last Infusion: 07/21/18 15:01 Dose: 0 mls/hr Admin: 07/21/18 13:58 Dose: 999 mls/hr Ceftriaxone Sodium (Rocephin) 1,000 mg in 50 mls @ 100 mls/hr IV NOW STA Stop: 07/21/18 14:12 Last Infusion: 07/21/18 14:47 Dose: 0 mls/hr Admin: 07/21/18 13:58 Dose: 100 mls/hr Sodium Chloride (Nss 1000ml) 1,000 mls @ 999 mls/hr IV .Q1H1M ONE Stop: 07/21/18 15:50 Last Infusion: 07/21/18 16:37 Dose: 0 mls/hr Admin: 07/21/18 15:03 Dose: 999 mls/hr Sodium Chloride (Nss 1000ml) 1,000 mls @ 125 mls/hr IV .Q8H NAN Stop: 07/22/18 03:43 Last Admin: 02/20/19 05:02 Dose: Not Given Infusion: 07/22/18 04:00 Dose: Infusion: 07/22/18 03:17 Dose: Admin: 07/21/18 18:48 Dose: 125 mls/hr Potassium Chloride (Klor-Con M20) 40 meq PO NOW STA Stop: 07/22/18 10:59 Last Admin: 07/22/18 11:54 Dose: 40 meq Medical Decision Making Differential Diagnosis Differential diagnosis: Etiologies such as cellulitis, abscess, MRSA infection, DVT, necrotizing fasciitis, dermatitis, drug eruption, as well as others were entertained. Medical Records Attestation: I reviewed the patient's medical records. Home Medications Current Medication List: was personally reviewed by me Laboratory Data Attestation: I reviewed the patient's lab results. Result diagrams: 07/22/18 07:55 07/22/18 07:55 Lab Results 07/21/18 07/21/18 07/21/18 Range/Units 12:55 12:55 12:55 WBC 17.55 H (4.8-10.8) K/uL RBC 4.86 (4.2-5.4) M/uL Hgb 14.1 (12.0-16.0) g/dL Hct 42.5 (37-47) % MCV 87.4 (80-100) fL MCH 29.0 (25-34) pg MCHC 33.2 (32-36) g/dL RDW Std Deviation 46.8 H (36.4-46.3) fL RDW Coeff of Trini 14.6 H (11.5-14.5) % Plt Count 271 (130-400) K/uL MPV 10.3 (7.4-10.4) fL Immature Gran % (Auto) 0.5 % Neut % (Auto) 90.6 % Lymph % (Auto) 3.7 % Bartholomew % (Auto) 5.1 % Eos % (Auto) 0.0 % Baso % (Auto) 0.1 % Immature Gran # (Auto) 0.09 H (0.00-0.02) K/uL Neut # (Auto) 15.90 H (1.4-6.5) K/uL Lymph # (Auto) 0.65 L (1.2-3.4) K/uL Bartholomew # (Auto) 0.90 H (0.11-0.59) K/uL Eos # (Auto) 0.00 (0-0.5) K/uL Baso # (Auto) 0.01 (0-0.2) K/uL PT 13.0 H (9.0-12.0) Seconds INR 1.3 H (0.9-1.1) APTT 28.1 (21.0-31.0) Seconds PTT Ratio 1.0 Sodium 137 (136-145) mmol/L Potassium 3.3 L (3.5-5.1) mmol/L Chloride 102 (98-107) mmol/L Carbon Dioxide 29 (21-32) mmol/L Anion Gap 6.0 (3-11) BUN 29 H (7-18) mg/dl Creatinine 0.93 (0.6-1.2) mg/dl Est Cr Clr Drug Dosing 53.3 ml/min Est GFR ( Amer) 65.9 Est GFR (Non-Af Amer) 56.8 BUN/Creatinine Ratio 30.7 H (10-20) Glucose 157 H (70-99) mg/dl POC Lactic Acid Larry (0.90-1.70) mmol/L Lactate (0.4-2.0) mmol/L Calcium 8.8 (8.5-10.1) mg/dl Total Bilirubin 1.1 H (0.2-1) mg/dl AST 12 L (15-37) U/L ALT 18 (12-78) U/L Alkaline Phosphatase 60 (45-117) U/L Troponin I 0.027 (0-0.045) ng/ml Total Protein 7.7 (6.4-8.2) gm/dl Albumin 3.6 (3.4-5.0) gm/dl Globulin 4.1 H (2.5-4.0) gm/dl Albumin/Globulin Ratio 0.9 (0.9-2) Procalcitonin (0-0.5) ng/ml Urine Color Urine Appearance (Clear) Urine pH (4.5-7.5) Ur Specific Douglas (1.000-1.030) Urine Protein (Negative) Urine Glucose (UA) (Negative) Urine Ketones (Negative) Urine Blood (Negative) Urine Nitrite (Negative) Urine Bilirubin (Negative) Urine Urobilinogen (Negative) Ur Leukocyte Esterase (Negative) Urine WBC (Auto) (0-5) /hpf Urine RBC (Auto) (0-4) /hpf U Hyaline Cast (Auto) (0-5) /lpf U Epithel Cells (Auto) (0-5) /lpf Urine Bacteria (Auto) (Negative) Ur Renal Epithelial Cell Urine Mucus (None Prsent) Urine Yeast Influenza Type A (PCR) (Neg) Influenza Type B (PCR) (Neg) 07/21/18 07/21/18 07/21/18 Range/Units 12:55 14:00 14:00 WBC (4.8-10.8) K/uL RBC (4.2-5.4) M/uL Hgb (12.0-16.0) g/dL Hct (37-47) % MCV (80-100) fL MCH (25-34) pg MCHC (32-36) g/dL RDW Std Deviation (36.4-46.3) fL RDW Coeff of Trini (11.5-14.5) % Plt Count (130-400) K/uL MPV (7.4-10.4) fL Immature Gran % (Auto) % Neut % (Auto) % Lymph % (Auto) % Bartholomew % (Auto) % Eos % (Auto) % Baso % (Auto) % Immature Gran # (Auto) (0.00-0.02) K/uL Neut # (Auto) (1.4-6.5) K/uL Lymph # (Auto) (1.2-3.4) K/uL Bartholomew # (Auto) (0.11-0.59) K/uL Eos # (Auto) (0-0.5) K/uL Baso # (Auto) (0-0.2) K/uL PT (9.0-12.0) Seconds INR (0.9-1.1) APTT (21.0-31.0) Seconds PTT Ratio Sodium (136-145) mmol/L Potassium (3.5-5.1) mmol/L Chloride (98-107) mmol/L Carbon Dioxide (21-32) mmol/L Anion Gap (3-11) BUN (7-18) mg/dl Creatinine (0.6-1.2) mg/dl Est Cr Clr Drug Dosing ml/min Est GFR ( Amer) Est GFR (Non-Af Amer) BUN/Creatinine Ratio (10-20) Glucose (70-99) mg/dl POC Lactic Acid Larry 2.36 H (0.90-1.70) mmol/L Lactate (0.4-2.0) mmol/L Calcium (8.5-10.1) mg/dl Total Bilirubin (0.2-1) mg/dl AST (15-37) U/L ALT (12-78) U/L Alkaline Phosphatase (45-117) U/L Troponin I (0-0.045) ng/ml Total Protein (6.4-8.2) gm/dl Albumin (3.4-5.0) gm/dl Globulin (2.5-4.0) gm/dl Albumin/Globulin Ratio (0.9-2) Procalcitonin 1.91 H (0-0.5) ng/ml Urine Color Urine Appearance (Clear) Urine pH (4.5-7.5) Ur Specific Douglas (1.000-1.030) Urine Protein (Negative) Urine Glucose (UA) (Negative) Urine Ketones (Negative) Urine Blood (Negative) Urine Nitrite (Negative) Urine Bilirubin (Negative) Urine Urobilinogen (Negative) Ur Leukocyte Esterase (Negative) Urine WBC (Auto) (0-5) /hpf Urine RBC (Auto) (0-4) /hpf U Hyaline Cast (Auto) (0-5) /lpf U Epithel Cells (Auto) (0-5) /lpf Urine Bacteria (Auto) (Negative) Ur Renal Epithelial Cell Urine Mucus (None Prsent) Urine Yeast Influenza Type A (PCR) Neg for Influ A (Neg) Influenza Type B (PCR) Neg for Influ B (Neg) 07/21/18 07/21/18 07/22/18 Range/Units 15:11 18:04 07:55 WBC 11.16 H (4.8-10.8) K/uL RBC 4.60 (4.2-5.4) M/uL Hgb 13.1 (12.0-16.0) g/dL Hct 40.7 (37-47) % MCV 88.5 (80-100) fL MCH 28.5 (25-34) pg MCHC 32.2 (32-36) g/dL RDW Std Deviation 48.6 H (36.4-46.3) fL RDW Coeff of Trini 15.1 H (11.5-14.5) % Plt Count 208 (130-400) K/uL MPV 10.0 (7.4-10.4) fL Immature Gran % (Auto) % Neut % (Auto) % Lymph % (Auto) % Bartholomew % (Auto) % Eos % (Auto) % Baso % (Auto) % Immature Gran # (Auto) (0.00-0.02) K/uL Neut # (Auto) (1.4-6.5) K/uL Lymph # (Auto) (1.2-3.4) K/uL Bartholomew # (Auto) (0.11-0.59) K/uL Eos # (Auto) (0-0.5) K/uL Baso # (Auto) (0-0.2) K/uL PT (9.0-12.0) Seconds INR (0.9-1.1) APTT (21.0-31.0) Seconds PTT Ratio Sodium (136-145) mmol/L Potassium (3.5-5.1) mmol/L Chloride (98-107) mmol/L Carbon Dioxide (21-32) mmol/L Anion Gap (3-11) BUN (7-18) mg/dl Creatinine (0.6-1.2) mg/dl Est Cr Clr Drug Dosing ml/min Est GFR ( Amer) Est GFR (Non-Af Amer) BUN/Creatinine Ratio (10-20) Glucose (70-99) mg/dl POC Lactic Acid Larry (0.90-1.70) mmol/L Lactate 1.2 (0.4-2.0) mmol/L Calcium (8.5-10.1) mg/dl Total Bilirubin (0.2-1) mg/dl AST (15-37) U/L ALT (12-78) U/L Alkaline Phosphatase (45-117) U/L Troponin I (0-0.045) ng/ml Total Protein (6.4-8.2) gm/dl Albumin (3.4-5.0) gm/dl Globulin (2.5-4.0) gm/dl Albumin/Globulin Ratio (0.9-2) Procalcitonin (0-0.5) ng/ml Urine Color Dark Yellow Urine Appearance Cloudy H (Clear) Urine pH 5.0 (4.5-7.5) Ur Specific Douglas 1.029 (1.000-1.030) Urine Protein 1+ H (Negative) Urine Glucose (UA) Negative (Negative) Urine Ketones Negative (Negative) Urine Blood 1+ H (Negative) Urine Nitrite Negative (Negative) Urine Bilirubin Negative (Negative) Urine Urobilinogen Negative (Negative) Ur Leukocyte Esterase Trace H (Negative) Urine WBC (Auto) 10-30 H (0-5) /hpf Urine RBC (Auto) 0-4 (0-4) /hpf U Hyaline Cast (Auto) 10-30 H (0-5) /lpf U Epithel Cells (Auto) >30 H (0-5) /lpf Urine Bacteria (Auto) 1+ H (Negative) Ur Renal Epithelial Cell Not Reportable Urine Mucus Present H (None Prsent) Urine Yeast Not Reportable Influenza Type A (PCR) (Neg) Influenza Type B (PCR) (Neg) 07/22/18 Range/Units 07:55 WBC (4.8-10.8) K/uL RBC (4.2-5.4) M/uL Hgb (12.0-16.0) g/dL Hct (37-47) % MCV (80-100) fL MCH (25-34) pg MCHC (32-36) g/dL RDW Std Deviation (36.4-46.3) fL RDW Coeff of Trini (11.5-14.5) % Plt Count (130-400) K/uL MPV (7.4-10.4) fL Immature Gran % (Auto) % Neut % (Auto) % Lymph % (Auto) % Bartholomew % (Auto) % Eos % (Auto) % Baso % (Auto) % Immature Gran # (Auto) (0.00-0.02) K/uL Neut # (Auto) (1.4-6.5) K/uL Lymph # (Auto) (1.2-3.4) K/uL Bartholomew # (Auto) (0.11-0.59) K/uL Eos # (Auto) (0-0.5) K/uL Baso # (Auto) (0-0.2) K/uL PT (9.0-12.0) Seconds INR (0.9-1.1) APTT (21.0-31.0) Seconds PTT Ratio Sodium 140 (136-145) mmol/L Potassium 3.1 L (3.5-5.1) mmol/L Chloride 107 (98-107) mmol/L Carbon Dioxide 28 (21-32) mmol/L Anion Gap 5.0 (3-11) BUN 28 H (7-18) mg/dl Creatinine 0.65 (0.6-1.2) mg/dl Est Cr Clr Drug Dosing 75.6 ml/min Est GFR ( Amer) 95.2 Est GFR (Non-Af Amer) 82.1 BUN/Creatinine Ratio 43.6 H (10-20) Glucose 108 H (70-99) mg/dl POC Lactic Acid Larry (0.90-1.70) mmol/L Lactate (0.4-2.0) mmol/L Calcium 8.1 L (8.5-10.1) mg/dl Total Bilirubin 0.5 D (0.2-1) mg/dl AST 21 (15-37) U/L ALT 16 (12-78) U/L Alkaline Phosphatase 49 (45-117) U/L Troponin I (0-0.045) ng/ml Total Protein 6.3 L (6.4-8.2) gm/dl Albumin 2.8 L (3.4-5.0) gm/dl Globulin 3.5 (2.5-4.0) gm/dl Albumin/Globulin Ratio 0.8 L (0.9-2) Procalcitonin (0-0.5) ng/ml Urine Color Urine Appearance (Clear) Urine pH (4.5-7.5) Ur Specific Douglas (1.000-1.030) Urine Protein (Negative) Urine Glucose (UA) (Negative) Urine Ketones (Negative) Urine Blood (Negative) Urine Nitrite (Negative) Urine Bilirubin (Negative) Urine Urobilinogen (Negative) Ur Leukocyte Esterase (Negative) Urine WBC (Auto) (0-5) /hpf Urine RBC (Auto) (0-4) /hpf U Hyaline Cast (Auto) (0-5) /lpf U Epithel Cells (Auto) (0-5) /lpf Urine Bacteria (Auto) (Negative) Ur Renal Epithelial Cell Urine Mucus (None Prsent) Urine Yeast Influenza Type A (PCR) (Neg) Influenza Type B (PCR) (Neg) Imaging Data Radiologist's Impression: Radiology results as stated below per my review and the radiologist's interpretation: XR chest 1V portable CLINICAL HISTORY: 83 years-old Female presenting with Sepsis. TECHNIQUE: Portable upright AP view of the chest was obtained. COMPARISON: 10/07/2012. FINDINGS: Atherosclerosis of the aortic arch. Cardiac silhouette enlarged. Mild pulmonary vessel prominence. Surgical clips project over the right lung base likely within the right breast. No focal lung opacity. Density at the left lung base likely due to cardiomegaly. No large effusion or pneumothorax. Possible underlying osteopenia. Degenerative changes of the spine. IMPRESSION: 1. Cardiomegaly with volume overload. No cheri pulmonary edema. No focal infiltrate to suggest pneumonia. Electronically signed by: Sly Moore M.D. 07/21/2018 2:[address] head/brain wo con CLINICAL HISTORY: 83 years-old Female presenting with ams. TECHNIQUE: Multidetector CT imaging of the head was performed without the use of intravenous contrast. IV contrast: None. One or more dose lowering techniques were used consistent with the principles of ALARA (as low as reasonably achievable), including automatic exposure control, mA or kV adjustment to individual patient size, and/or use of iterative reconstruction. COMPARISON: None. CT DOSE (mGy.cm): The estimated cumulative dose is 537.48 mGy.cm. FINDINGS: Bellows Filler topogram: Unremarkable. Ventricles and sulci normal in size. No hemorrhage. Apparent subtle hypodensity in the bilateral anterior temporal lobes in the periventricular and medial portions. Remainder of the brain parenchyma normal. No acute territorial infarct. No mass effect or midline shift. No extra-axial fluid collection. Paranasal sinuses and mastoid air cells clear. Calvarium intact. Bilateral [employer] [place] [employer] lenses are absent. IMPRESSION: 1. Apparent hypodense brain parenchyma the anterior medial temporal lobes. This is felt to most likely be artifactual from being hardening artifact at the skull base. However, if there are infectious symptoms or clinical concern for encephalitis, then MRI of the brain is recommended. No other evidence of acute intracranial pathology. Electronically signed by: Sly Moore M.D. 07/21/2018 2:29 PM 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 Demineralized appearance of the bones. Vascular calcifications about the calf are noted. Marginal spurring of the calcaneus. No acute fracture or dislocation. Degenerative changes about the midfoot and hindfoot. Moderate soft tissue swelling about the calf and lower leg. IMPRESSION: 1. Soft tissue swelling without acute fracture or dislocation. 2. Degenerative changes as above. The above report was generated using voice recognition software. It may contain grammatical, syntax or spelling errors. Electronically signed by: Aleksandar Daniels M.D. 07/21/2018 2:15 PM US venous doppler LE RT CLINICAL HISTORY: Right leg swelling COMPARISON STUDY: No previous studies for comparison. FINDINGS: Real-time and color flow Doppler imaging were performed. Flow was seen within the femoral, popliteal and calf veins with no intraluminal thrombus demonstrated. The saphenous vein is patent. IMPRESSION: No evidence of right lower extremity DVT. Electronically signed by: Ronald Hargrove M.D. 07/21/2018 3:42 PM ECG Data Attestation: I personally reviewed and interpreted this ECG as follows: Indication: altered mental status Rate (beats per minute): 95 Rhythm: sinus rhythm Findings: + other (normal axis, normal intervals); no PAC, no PVC, no ST depression and no ST elevation Blood Pressure Blood Pressure Findings: Low blood pressure Blood Pressure Disposition: further management by hospitalist [facility] Narrative Patient well-appearing at presentation with concern for evolving sepsis secondary to right lower extremity cellulitis. No other acute source of infection was noted. Blood cultures drawn and patient started on IV Rocephin initially. Patient is not a diabetic and has no prior history of MRSA. Patient with chronic appearing changes to the lower extremities, now with increased warmth, edema, erythema to the right lower extremity more suggestive of acute cellulitis. I do not suspect septic arthritis, osteomyelitis, no evidence of DVT, no other evidence to suggest necrotizing fasciitis. Patient was trying to reinitiate care with the wound care clinic. Patient was hemodynamically stable here. Patient with mild confusion here, likely secondary to evolving infection. No other significant findings noted on CT head. Patient with no other neurologic symptoms or physical exam findings to suggest occult [employer] pathology. I do not suspect meningitis/encephalitis. Patient and son aware of all results were in agreement with plan. Case discussed with hospitalist for additional evaluation and management. Impression & Plan Sepsis, Cellulitis, Altered mental status Discharge Plan Visit Data *Final* Discharge Date/Time: 07/21/18 17:00 Chief Complaint: Swelling/Edema to Extremity Other Complaint: Edema To Extremity Fever ED Provider: Trish Clarke Discharge Problem: Sepsis, Cellulitis, Altered mental status Patient Disposition: Admitted As Inpatient Discharge Instructions Interventions: ED Discharge Assessment Last Done: 07/21/18 17:00 The scribe's documentation has been prepared under my direction and personally reviewed by me in its entirety. I confirm that the note above accurately reflects all work, treatment, procedures, and medical decision making performed by me.
[2018-07-23 07:21] LABS: Hematocrit (blood only) 35.7 % (37-47); Hemoglobin 11.4 g/dL (12.0-16.0); Mean Corpuscular Hgb Conc 31.9 g/dL (32-36); Mean Corpuscular Volume 88.6 fL (80-100); Mean Platelet Volume 9.6 fL (7.4-10.4); Platelet Count 183 K/uL (130-400); RDW Coefficient of Variation 14.9 % (11.5-14.5); RDW Standard Deviation 48.6 fL (36.4-46.3); Red Blood Count 4.03 M/uL (4.2-5.4); White Blood Count 6.61 K/uL (4.8-10.8)
[2018-07-23 08:10] LABS: Albumin Level 2.5 gm/dl (3.4-5.0); BUN Creatinine Ratio 36.9 (10-20); Calcium 8.1 mg/dl (8.5-10.1); Creatinine Clr Calc Pharmacy 86.9 ml/min; Est GFR (African American) 99.4; Est GFR (Non-African American) 85.7; Potassium 3.3 mmol/L (3.5-5.1)
[2018-07-23] MEDS ORDERED: POTASSIUM CHLORIDE 20 MEQ TABCR PO STA (08:11)
[2018-07-23 08:13] LABS: Albumin Globulin Ratio 0.7 (0.9-2); Bilirubin,Total 0.4 mg/dl (0.2-1); Globulin 3.4 gm/dl (2.5-4.0); Total Protein 5.9 gm/dl (6.4-8.2)
[2018-07-23] MEDS: TRIAMCINOLONE ACET 0.1% CR 15 GM TUBE TOP SCH ×2 (08:40→20:04)
[2018-07-23] MEDS: ASPIRIN 81 MG ECTAB PO SCH (08:41)
[2018-07-23] MEDS: cefTRIAXone SODIUM 1,000 MG/50 ML BAG IV SCH (09:34)
[2018-07-23] MEDS: ACETAMINOPHEN 325 MG TAB PO PRN ×2 (10:05→23:50)
[2018-07-23] MEDS ORDERED: VANCOMYCIN HCL 1,000 MG in SODIUM CHLORIDE 0.9% 250 ML IV SCH (15:00)
[2018-07-23] MEDS ORDERED: VANCOMYCIN CONSULT ACTIVE PRN (15:00)
--- NOTE | 2018-07-23 15:03 | Hospitalist Progress Note ---
Date of Service July 23, 2018 Assessment & Plan (1) Cellulitis: (2) Sepsis: - secondary to cellulitis with metabolic encephalopathy on admission that is now resolved - Will continue on rocephin IV and add vancomycin for worsening right leg erythema - Lactic acid=2.36 on admission - Tmax=39.4 on admission - afebrile since - WBC elevated at 17.55 on admission and trended down - BCx 2 no growth to date - Wound consult for cellulitis and open blister wounds - patients [place] was 1.1 - should have outpatient follow up arranged upon discharge - U/S negative for DVT with increased edema of the RLE (3) HX: breast cancer: - Stable, s/p breast cancer. (4) Venous stasis dermatitis of both lower extremities: - Chronic, adding to increased potential for cellulitis. - [place] 1.1 per WC nurse (5) Osteoarthritis: - pain is tolerable per patient (6) Obesity (BMI 30-39.9): - Diet and exercise encouraged (7) Diastolic dysfunction: Evidence of fluid overload on admission CXR, no sob or hypoxia. Given septic picture on admission, held off on any diuretic, no further IVF (8) DVT prophylaxis: - lovenox subq Dispo: PT/OT SUSANNE mathis to help determine if patient will need rehab following this admission Subjective Ms. Ding is having a difficult time ambulating due to pain her legs, particularly the right leg. She otherwise has no complaints other than generally feeling unwell. Review of Systems All systems reviewed & are unremarkable except as noted in HPI & below Physical Exam 2 Vital Signs (Past 24 Hours): Last Vital Signs Temp 37.2 C 07/23/18 07:34 Pulse 68 07/23/18 07:34 Resp 16 07/23/18 07:34 BP 98/51 L 07/23/18 07:34 Pulse Ox 92 07/23/18 07:34 Physical Exam: General: no distress Eyes: normal inspection, PERLL Respiratory: chest non tender, clear to auscultation, normal breath sounds, no respiratory distress, no accessory muscle use Cardiac: regular rate and rhythm, no rub or gallop, no murmur, no edema, no jvd GI/: active bowel sounds, no abd pain or tenderness, soft, non distended Extremities: normal range of motion, normal strength, non tender Neuro/Psych: alert and oriented x 3, normal mood and affect Skin: erythema now extends up right inner thigh, lower legs erythematous bilaterally, left leg more edematous than right, wounds on calf right leg without significant drainage. Results & Data Laboratory Results Abnormal lab results 07/23/18 07/23/18 Range/Units 07:09 07:09 RBC 4.03 L (4.2-5.4) M/uL Hgb 11.4 L (12.0-16.0) g/dL Hct 35.7 L (37-47) % MCHC 31.9 L (32-36) g/dL RDW Std Deviation 48.6 H (36.4-46.3) fL RDW Coeff of Trini 14.9 H (11.5-14.5) % Potassium 3.3 L (3.5-5.1) mmol/L BUN 21 H (7-18) mg/dl Creatinine 0.57 L (0.6-1.2) mg/dl BUN/Creatinine Ratio 36.9 H (10-20) Glucose 101 H (70-99) mg/dl Calcium 8.1 L (8.5-10.1) mg/dl Alkaline Phosphatase 44 L (45-117) U/L Total Protein 5.9 L (6.4-8.2) gm/dl Albumin 2.5 L (3.4-5.0) gm/dl Albumin/Globulin Ratio 0.7 L (0.9-2) _ (1) Cellulitis Laterality: unspecified laterality Site of cellulitis: extremity Site of cellulitis of extremity: lower extremity Site of cellulitis of trunk: Qualified Code(s): L03.119 - Cellulitis of unspecified part of limb (2) Sepsis Sepsis type: sepsis due to unspecified organism Qualified Code(s): A41.9 - Sepsis, unspecified organism
[2018-07-23] MEDS ORDERED: VANCOMYCIN HCL 2,000 MG in SODIUM CHLORIDE 0.9% 500 ML IV STA (15:27)
[2018-07-24] MEDS ORDERED: VANCOMYCIN HCL 1,250 MG in SODIUM CHLORIDE 0.9% 250 ML IV SCH (02:00)
[2018-07-24 07:21] LABS: Hematocrit (blood only) 36.1 % (37-47); Hemoglobin 11.6 g/dL (12.0-16.0); Mean Corpuscular Hgb Conc 32.1 g/dL (32-36); Mean Corpuscular Volume 88.7 fL (80-100); Mean Platelet Volume 10.2 fL (7.4-10.4); Platelet Count 190 K/uL (130-400); RDW Coefficient of Variation 14.8 % (11.5-14.5); RDW Standard Deviation 47.7 fL (36.4-46.3); Red Blood Count 4.07 M/uL (4.2-5.4); White Blood Count 6.43 K/uL (4.8-10.8)
[2018-07-24] MEDS: ASPIRIN 81 MG ECTAB PO SCH (07:57)
[2018-07-24] MEDS: cefTRIAXone SODIUM 1,000 MG/50 ML BAG IV SCH (07:57)
[2018-07-24] MEDS: TRIAMCINOLONE ACET 0.1% CR 15 GM TUBE TOP SCH (07:58)
[2018-07-24] MEDS: ACETAMINOPHEN 325 MG TAB PO PRN (07:58)
[2018-07-24 08:03] LABS: Albumin Level 2.6 gm/dl (3.4-5.0); BUN Creatinine Ratio 27.5 (10-20); Calcium 8.1 mg/dl (8.5-10.1); Creatinine Clr Calc Pharmacy 89.9 ml/min; Est GFR (African American) 100.5; Est GFR (Non-African American) 86.7; Potassium 3.6 mmol/L (3.5-5.1)
[2018-07-24 08:06] LABS: Albumin Globulin Ratio 0.7 (0.9-2); Bilirubin,Total 0.5 mg/dl (0.2-1); Globulin 3.5 gm/dl (2.5-4.0); Total Protein 6.1 gm/dl (6.4-8.2)
--- NOTE | 2018-07-24 11:20 | Discharge Summary ---
Date of Service July 24, 2018 Admission HPI Per Admitting Provider This is a 83 yo F with PMHx of HTN, breast cancer s/p XRT, venous stasis ulceration, hx of cellulitis, uterine fibroids who presents with acute onset of altered mental status. The patients son is present at bedside and supports the history as the patient is unable to due to AMS. He states she lives independently and cares for her , and typically can perform normal ADLs without difficulty. This morning he was called by neighbors of the patient and reported that she was unable to stand up. It is unknown if these neighbors presented to their home, or exactly how this came to be found, but once the son was called, so was EMS. Son notes the pt has had bouts of cellulitis in the past but has been treated conservatively. There is no known injury to have caused cellulitis at this point, but there are several areas of blisters which have bandages on it. The patient is also a patient in the ER bay next to her, as she was not managing her husbands insulin due to AMS. Vitals upon admission were Tmax = 39.4 , elevated HR = 102, BP 147/66, and have all now improved. Imaging of the head, chest and knee were performed and are without acute findings. WBC elevated at 17.55 and potassium is slightly low at 3.3, other electrolytes are WNL. Past Surgical Hx: 1. Left breast biopsy. 2. Right breast biopsy. 3. Dilatation and curettage. 4. She also has had colonoscopy in 2009. Principal Diagnosis Cellulitis Discharge Exam Constitutional WD/WN, vitals as above Respiratory no respiratory distress and no labored breathing very faint scattered expiratory wheezes Cardiovascular RRR, no murmur, no edema Gastrointestinal (Abdomen) normal bowel sounds, soft, nontender, no hepatosplenomegaly Skin erythema improving over right leg, +2 pitting edema, open sores without drainage Neurologic moves all extremities and awake Psychiatric A+Ox3, euthymic affect Discharge Data Allergies Allergy/AdvReac Type Severity Reaction Status Date / Time No Known Allergies Allergy Unverified 07/21/18 13:05 Consultations 07/21/18 15:50 ED Decision to Admit Stat 07/21/18 17:44 Consult Case Management - Discharge Planning Routine Ordered Studies 07/21/18 13:38 CT head/brain wo con Stat 07/21/18 13:39 US venous doppler LE RT Stat Hospital Course (1) Cellulitis: (2) Sepsis: - secondary to cellulitis with metabolic encephalopathy on admission that is now resolved - Given rocephin IV and added vancomycin 07/23 for worsening right leg erythema - improved today - will discharge with doxycycline - Lactic acid=2.36 on admission - Tmax=39.4 on admission - afebrile since - WBC elevated at 17.55 on admission and trended down, has been wnl x2 days - BCx 2 no growth to date - Wound consult for cellulitis and open blister wounds - patients [place] was 1.1 - should have outpatient follow up arranged upon discharge and follow up with vascular - U/S negative for DVT with increased edema of the RLE - patient has been up and ambulating with walker, feels a bit weak but overall feels she is improving and looking forward to discharge. She is planning to stay with her son for a few nights and will also receive home health (3) HX: breast cancer: - Stable, s/p breast cancer. (4) Venous stasis dermatitis of both lower extremities: - Chronic, adding to increased potential for cellulitis. - [place] 1.1 per nurse (5) Osteoarthritis: - pain is tolerable per patient (6) Obesity (BMI 30-39.9): - Diet and exercise encouraged (7) Diastolic dysfunction: Evidence of fluid overload on admission CXR, no sob or hypoxia. Given septic picture on admission, held off on any diuretic, no further IVF. Today she is clear except for a few scattered wheezes. She continues to saturate high 90s on RA and has no complaints of dyspnea, no sob when walking. (8) DVT prophylaxis: - lovenox subq Dispo: Home with home health Total Time Total Time Spent Total Time Spent (In Minutes): greater than 30 minutes Discharge Plan Discharge Items Patient Disposition: Home - Home Health Services Reason For Visit: CELLULITIS Discharge Diagnosis: Cellulitis Discharge Goals: Decrease discomfort and Improve disease control Activity: Resume your previous activity Non-emergency contact: Primary Care Provider Call non-emergency contact if: you have any medication questions, your symptoms worsen, your pain is not controlled, your pain is worsening, you have a fever, your wound has increased drainage and your wound pain has increased Follow-up/Referrals: [facility] [Outside] - 07/30/18 8:00 am (Please, follow up at [facility] on July 30 at 8:00 am. *This clinic is located at [address] in [place]. If you need to change this appointment, call the office at [phone].) Lin Simmons, DO [Primary Care Provider] - 07/29/18 2:30 pm (Please, follow up at Dr. Simmons's office with her associate, Dr. Rae, on FridayJuly 29 at 2:30 pm. *The office phone number is [phone].) Addtl Provider Instructions: Please keep the listed follow up appointments. Additionally, you should see Dr. Verma with [facility] for vascular follow up of your lower extremities. You will go home with a prescription for doxycycline. Doxycycline can cause photosensitivity so please use sunscreen or cover ups and sunglasses when outside until you have finished your course. You should also avoid taking the medication with dairy products. Doxycycline can cause gastrointestinal discomfort and nausea, you can try taking the medication with food to avoid this effect. Do not take bismuth (Pepto-Bismol�), calcium, iron, magnesium, zinc , multivitamins with minerals, colestipol, cholestyramine, didanosine, or antacids within 2 hours of this drug.Take with a full glass of water. Do not lie down for at least 30 minutes after taking this drug. Home Health will contact your son to schedule their first visit. They should evaluate and treat you for physical and occupational therapy. They will help you with your dressings which should be changed daily, wounds covered with Aquacel and optifoam. You can buy over the counter Eucerine cream for your legs as well Prescriptions: New doxycycline hyclate 100 mg capsule 100 mg PO BID 7 Days Qty: 14 RF: 0 Continue acetaminophen [Tylenol] 325 mg Tablet 650 mg PO Q6H PRN (Reason: Pain) RF: 0 aspirin 81 mg Tablet,Delayed Release (Dr/Ec) 81 mg PO QAM RF: 0 triamcinolone acetonide 0.1 % cream 1 applic topical BID RF: 0 Stand-Alone Forms: [facility] Discharge Orders: Discharge Order (Routine); Ordered 07/24/18 Ordered By: Rain Jones Admission Data Admit Date/Time: 07/21/18 16:09 Attending Provider: Devan Burt Admit Provider: Matilde Nova Primary Care Provider: Lin Simmons Other Providers: Matilde Nova Service: Telemetry
[2018-07-24] MEDS ORDERED: DOXYCYCLINE HYCLATE 100 MG CAP PO SCH (21:00)
[2018-07-25] MEDS ORDERED: VANCOMYCIN TROUGH ONE (07:30)
== END 2018-07-24 13:18 | disposition home health service (06) | DRG 871 ==
LOC: ED 12:39 → SUATTDRO 16:09 → 2W 16:09

== ENCOUNTER 2021-12-21 01:02 | Observation (INO) ==
[2021-12-21] MEDS ORDERED: SODIUM CHLORIDE 0.9% 500 ML IV SCH (01:45)
--- NOTE | 2021-12-21 02:06 | Emergency Department Note ---
History of Present Illness General Chief complaint: Dizziness Stated complaint: LIGHT HEADED Time Seen by Provider: 12/21/21 01:21 History of Present Illness Maximum Pain Intensity: 8 This 86-year-old presents to the ER complaining of generalized weakness and near syncope for the past few days Location: Generalized Quality: Weak Severity: Moderate Duration: Past few days Timing: Started few days ago Context: Neighbor was concerned and brought her in Modifying factors: better with rest; worse with activity Patient has been too weak to get up. She has urinated on herself a few times. The neighbor has been cleaning her up. Patient states she cannot recall the last time she ate or drink. The neighbor states she has not been eating much she is past few days. Patient is feeling more confused than baseline. Neighbor states she is acting more confused than baseline. Patient specific denies chest pain, abdominal pain, fevers, flulike illness. Patient lives alone. The neighbor checks on her. History is also obtained for the neighbor that is present. Patient gives permission. Home Medications Medication Instructions Recorded Confirmed Type furosemide 20 mg tablet (Lasix) 20 mg PO DAILY 04/25/20 12/21/21 History Unknown Pain Pill/Pain Mgmt 1 tab PO DIRECTED PRN Pain 12/21/21 12/21/21 History duloxetine 20 mg capsule,delayed 40 mg PO DAILY 12/21/21 12/21/21 History release telmisartan 40 1 tab PO DAILY 12/21/21 12/21/21 History mg-hydrochlorothiazide 12.5 mg tablet Allergies Allergy/AdvReac Type Severity Reaction Status Date / Time No Known Allergies Allergy Verified 12/21/21 02:14 Past Med/Surg History Medical History (Updated 12/21/21 @ 04:57 by Rosa Jackson PA-C) Altered mental status Anemia Cellulitis Depression DVT prophylaxis HX: breast cancer Hyperlipidemia Obesity (BMI 30-39.9) Osteoarthritis Peripheral vascular disease Unable to care for self Venous stasis dermatitis of both lower extremities Surgical History History of appendectomy Family History Other Benign essential HTN DM II (diabetes mellitus, type II), controlled PVD (peripheral vascular disease) Stroke Social History Smoking Status: Never smoker Hx Alcohol Use: No Hx Substance Use: No Preferred Language: Tamazight Communication Ability: Effective 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: No Beliefs That Will Affect Care: None marital status: Current Living Situation: Spouse How many Children do You have: 1 Feels Safe at Home: Yes Assistive Devices: Walker Review of Systems A total of 10 systems reviewed and were otherwise negative Physical Exam Vital Signs Vital Signs - 24 hr 12/21/21 01:16 12/21/21 01:33 12/21/21 01:02 Temperature 36.1 C L Temperature Source Temporal Artery Scan Pulse Rate 71 Pulse Rhythm Regular Pulse Strength Normal Respiratory Rate 20 Respiratory Effort / Characteristics Non-Labored Spontaneous Respiratory Depth Normal Respiratory Pattern Regular Blood Pressure 136/52 L Blood Pressure Mean 80 Blood Pressure Position Sitting Pulse Oximetry 99 98 94 Oxygen Delivery Method Room Air Room Air Room Air Sepsis Recent Fever Within 48 Hours No Sepsis New/Unexplained Change in Mental Status No Sepsis Action Taken by Nursing No Action Required 12/21/21 01:02 12/21/21 03:02 12/21/21 05:00 Temperature Temperature Source Pulse Rate Pulse Rhythm Pulse Strength Respiratory Rate 16 Respiratory Effort / Characteristics Non-Labored Non-Labored Non-Labored Respiratory Depth Normal Normal Normal Respiratory Pattern Blood Pressure Blood Pressure Mean Blood Pressure Position Pulse Oximetry 98 96 Oxygen Delivery Method Room Air Room Air Sepsis Recent Fever Within 48 Hours Sepsis New/Unexplained Change in Mental Status Sepsis Action Taken by Nursing 12/21/21 06:02 Temperature Temperature Source Pulse Rate 78 Pulse Rhythm Pulse Strength Respiratory Rate 18 Respiratory Effort / Characteristics Respiratory Depth Respiratory Pattern Blood Pressure 124/64 Blood Pressure Mean Blood Pressure Position Pulse Oximetry 98 Oxygen Delivery Method Room Air Sepsis Recent Fever Within 48 Hours Sepsis New/Unexplained Change in Mental Status Sepsis Action Taken by Nursing VITALS: Vitals are noted on the nurse's note and reviewed by myself. Vital signs stable. GENERAL: Pleasant female following commands, in no acute distress, nondiaphoretic, well-developed well-nourished. SKIN: The skin was without rashes, erythema, edema, or bruising. There is no tenting of the skin. Capillary reflex less than 2 seconds. HEAD: Normocephalic atraumatic. EARS: External auditory canals clear, EYES: Pupils equal round and reactive to light and accommodation. Conjunctivae without injection, sclerae without icterus. Extraocular movements intact. NOSE: Patent, turbinates without inflammation or discharge. MOUTH: Mucous membranes dry. Pharynx without erythema or exudate. Uvula midline. Airway patent. Tongue does not deviate. NECK: Supple without nuchal rigidity. No lymphadenopathy. No thyromegaly. Cervical spine is nontender. No JVD. HEART: Regular rate and rhythm . LUNGS: Clear to auscultation bilaterally without wheezes, rales or rhonchi. No retractions or accessory muscle use. ABDOMEN: Positive bowel sounds x 4. Normal tympanic percussion. Soft, nontender, without masses or organomegaly. Francis sign negative. No guarding or rebound tenderness. No CVA tenderness MUSCULOSKELETAL: No muscle atrophy, erythema, noted. NEURO: Patient was alert and oriented to person place and time. Normal sensation to light and sharp touch. No focal neurological deficits. Course Administered Medications Discontinued Medications Sodium Chloride (Nss) 500 mls @ 999 mls/hr IV .Q31M NAN Stop: 12/21/21 02:15 Last Infusion: 12/21/21 03:22 Dose: 0 mls/hr Documented By: Admin: 12/21/21 02:05 Dose: 999 mls/hr Documented By: MATEO Ceftriaxone Sodium (Rocephin) 2,000 mg in 70 mls @ 140 mls/hr IV NOW STA Stop: 12/21/21 04:07 Last Admin: 12/21/21 04:32 Dose: 140 mls/hr Documented By: MATEO Medical Decision Making Medical Records Attestation: I reviewed the patient's medical records. Home Medications Current Medication List: was personally reviewed by me Laboratory Data Attestation: I reviewed the patient's lab results. Result diagrams: 12/21/21 02:07 12/21/21 02:07 Lab Results 12/21/21 12/21/21 12/21/21 Range/Units 02:07 02:07 02:07 WBC 6.34 (4.8-10.8) K/ul RBC 4.73 (3.93-5.22) M/uL Hgb 11.2 L (12.0-16.0) g/dl Hct 36.9 (34.1-44.9) % MCV 78.0 L (80.0-100.0) fL MCH 23.7 L (25.0-34.0) pg MCHC 30.4 L (32.0-36.0) g/dL RDW Std Deviation 41.0 (36.4-46.3) fL RDW Coeff of Trini 14.6 H (11.5-14.5) % Plt Count 285 (130-400) K/uL MPV 10.1 (9.4-12.3) fL Immature Gran % (Auto) 0.3 % Neut % (Auto) 63.6 % Lymph % (Auto) 23.7 % Chambers % (Auto) 8.7 % Eos % (Auto) 3.2 % Baso % (Auto) 0.5 % Neut # (Auto) 4.04 (1.4-6.5) K/uL Lymph # (Auto) 1.50 (1.2-3.4) K/uL Chambers # (Auto) 0.55 (0.24-0.82) K/uL Eos # (Auto) 0.20 (0-0.50) K/uL Baso # (Auto) 0.03 (0-0.2) K/uL Immature Gran # (Auto) 0.02 (0.00-0.02) K/uL Sodium Cancelled Potassium Cancelled Chloride Cancelled Carbon Dioxide Cancelled Anion Gap Cancelled BUN Cancelled Creatinine Cancelled Est Cr Clr Drug Dosing Cancelled Est GFR ( Amer) Cancelled Est GFR (Non-Af Amer) Cancelled BUN/Creatinine Ratio Cancelled Glucose Cancelled Calcium Cancelled Phosphorus (2.5-4.9) mg/dl Magnesium Cancelled Iron (35-150) mcg/dl TIBC (250-450) mcg/dl Unsaturated IBC (155-355) mcg/dl Transferrin % Sat (15-50) % Ferritin (8-388) ng/ml Total Bilirubin Cancelled AST Cancelled ALT Cancelled Alkaline Phosphatase Cancelled Total Creatine Kinase Cancelled Troponin I High Sens 9.6 (0-14) pg/ml Total Protein Cancelled Albumin Cancelled Globulin Cancelled Albumin/Globulin Ratio Cancelled Vitamin B12 (180-914) pg/ml Folate (>5.38) ng/ml Procalcitonin (0-0.5) ng/ml TSH 2.382 (0.300-4.500) uIu/ml Urine Color Urine Appearance (Clear) Urine pH (4.5-7.5) Ur Specific [place] (1.000-1.030) Urine Protein (Negative) Urine Glucose (UA) (Negative) Urine Ketones (Negative) Urine Blood (Negative) Urine Nitrite (Negative) Urine Bilirubin (Negative) Urine Urobilinogen (Negative) Ur Leukocyte Esterase (Negative) Urine WBC (Auto) (0-5) /hpf Urine RBC (Auto) (0-4) /hpf U Hyaline Cast (Auto) (0-5) /lpf U Epithel Cells (Auto) (0-5) /lpf Urine Bacteria (Auto) (Negative) SARS-CoV-2, RNA, NAAT (NEGATIVE) 12/21/21 12/21/21 12/21/21 Range/Units 02:07 02:10 02:45 WBC (4.8-10.8) K/ul RBC (3.93-5.22) M/uL Hgb (12.0-16.0) g/dl Hct (34.1-44.9) % MCV (80.0-100.0) fL MCH (25.0-34.0) pg MCHC (32.0-36.0) g/dL RDW Std Deviation (36.4-46.3) fL RDW Coeff of Trini (11.5-14.5) % Plt Count (130-400) K/uL MPV (9.4-12.3) fL Immature Gran % (Auto) % Neut % (Auto) % Lymph % (Auto) % Chambers % (Auto) % Eos % (Auto) % Baso % (Auto) % Neut # (Auto) (1.4-6.5) K/uL Lymph # (Auto) (1.2-3.4) K/uL Chambers # (Auto) (0.24-0.82) K/uL Eos # (Auto) (0-0.50) K/uL Baso # (Auto) (0-0.2) K/uL Immature Gran # (Auto) (0.00-0.02) K/uL Sodium 135 L Potassium 3.9 Chloride 96 L Carbon Dioxide 30 Anion Gap 9 BUN 23 Creatinine 0.77 Est Cr Clr Drug Dosing Not Reportable Est GFR ( Amer) 81.0 Est GFR (Non-Af Amer) 69.9 BUN/Creatinine Ratio 29.9 H Glucose 115 H Calcium 8.8 Phosphorus (2.5-4.9) mg/dl Magnesium 2.0 Iron (35-150) mcg/dl TIBC (250-450) mcg/dl Unsaturated IBC (155-355) mcg/dl Transferrin % Sat (15-50) % Ferritin (8-388) ng/ml Total Bilirubin 0.5 AST 13 ALT 5 L Alkaline Phosphatase 69 Total Creatine Kinase 41 Troponin I High Sens (0-14) pg/ml Total Protein 6.5 Albumin 3.9 Globulin 2.6 Albumin/Globulin Ratio 1.5 Vitamin B12 (180-914) pg/ml Folate (>5.38) ng/ml Procalcitonin (0-0.5) ng/ml TSH (0.300-4.500) uIu/ml Urine Color Yellow Urine Appearance Clear (Clear) Urine pH 7.5 (4.5-7.5) Ur Specific [place] 1.006 (1.000-1.030) Urine Protein Negative (Negative) Urine Glucose (UA) Negative (Negative) Urine Ketones Negative (Negative) Urine Blood Negative (Negative) Urine Nitrite Negative (Negative) Urine Bilirubin Negative (Negative) Urine Urobilinogen Negative (Negative) Ur Leukocyte Esterase 3+ H (Negative) Urine WBC (Auto) >30 H (0-5) /hpf Urine RBC (Auto) 0-4 (0-4) /hpf U Hyaline Cast (Auto) 0 (0-5) /lpf U Epithel Cells (Auto) 0-5 (0-5) /lpf Urine Bacteria (Auto) 1+ H (Negative) SARS-CoV-2, RNA, NAAT NEGATIVE (NEGATIVE) 12/21/21 12/21/21 12/21/21 Range/Units 04:27 04:27 04:27 WBC (4.8-10.8) K/ul RBC (3.93-5.22) M/uL Hgb (12.0-16.0) g/dl Hct (34.1-44.9) % MCV (80.0-100.0) fL MCH (25.0-34.0) pg MCHC (32.0-36.0) g/dL RDW Std Deviation (36.4-46.3) fL RDW Coeff of Trini (11.5-14.5) % Plt Count (130-400) K/uL MPV (9.4-12.3) fL Immature Gran % (Auto) % Neut % (Auto) % Lymph % (Auto) % Chambers % (Auto) % Eos % (Auto) % Baso % (Auto) % Neut # (Auto) (1.4-6.5) K/uL Lymph # (Auto) (1.2-3.4) K/uL Chambers # (Auto) (0.24-0.82) K/uL Eos # (Auto) (0-0.50) K/uL Baso # (Auto) (0-0.2) K/uL Immature Gran # (Auto) (0.00-0.02) K/uL Sodium Potassium Chloride Carbon Dioxide Anion Gap BUN Creatinine Est Cr Clr Drug Dosing Est GFR ( Amer) Est GFR (Non-Af Amer) BUN/Creatinine Ratio Glucose Calcium Phosphorus 3.4 (2.5-4.9) mg/dl Magnesium Iron 24 L (35-150) mcg/dl TIBC 324 (250-450) mcg/dl Unsaturated IBC 300 (155-355) mcg/dl Transferrin % Sat 7 L (15-50) % Ferritin 9.7 (8-388) ng/ml Total Bilirubin AST ALT Alkaline Phosphatase Total Creatine Kinase Troponin I High Sens (0-14) pg/ml Total Protein Albumin Globulin Albumin/Globulin Ratio Vitamin B12 175 L (180-914) pg/ml Folate 5.68 (>5.38) ng/ml Procalcitonin < 0.05 (0-0.5) ng/ml TSH (0.300-4.500) uIu/ml Urine Color Urine Appearance (Clear) Urine pH (4.5-7.5) Ur Specific [place] (1.000-1.030) Urine Protein (Negative) Urine Glucose (UA) (Negative) Urine Ketones (Negative) Urine Blood (Negative) Urine Nitrite (Negative) Urine Bilirubin (Negative) Urine Urobilinogen (Negative) Ur Leukocyte Esterase (Negative) Urine WBC (Auto) (0-5) /hpf Urine RBC (Auto) (0-4) /hpf U Hyaline Cast (Auto) (0-5) /lpf U Epithel Cells (Auto) (0-5) /lpf Urine Bacteria (Auto) (Negative) SARS-CoV-2, RNA, NAAT (NEGATIVE) Imaging Data Attestation: I personally reviewed and interpreted this imaging study as follows: MDM Narrative Prior records/ancillary studies reviewed and summarized above. Nursing notes reviewed. Additional history obtained from friend. The patient's history was concerning for weakness. Differential diagnosis: Etiologies such as metabolic, infection, hypo/hyperglycemia, electrolyte abno rmalities, cardiac sources, intracerebral event, toxicologic, neurologic, as well as others were entertained. Physical examination: As above. ER treatment provided: IV Lock An order was placed for continuous cardiac monitoring. The monitor shows a rate of 60 to 100 with a sinus rhythm. IV fluids On reassessment the patient felt better. Diagnostics interpretation by me: ECG: Ordered for weakness EKG: Poor baseline, normal sinus, normal intervals, no acute ST-T wave changes. Impression normal sinus rhythm with a poor baseline interpreted by myself I think arrhythmia is unlikely. EKG shows normal sinus rhythm with no interval abnormalities such as QT prolongation or WPW. There are no findings to suggest Brugada syndrome. Cardiac monitoring in the emergency department reveals no tachycardic or bradycardic dysrhythmia. Hypertrophic cardiomyopathy was considered but there are no clear historical elements pointing toward this. EKG is not suggestive. The QRS voltage is not extremely large and there are no suggestive Q waves. The labs revealed urine concerning for infection and sent for culture. No recent urine cultures for review Negative troponin Imaging studies: Chest x-ray with no acute consolidation, pneumothorax or free air per my interpretation Preliminary Findings Only See Final Report For Complete Findings CT HEAD: Comparison to July 21, 2018. Mild cerebral atrophy and periventricular white matter low density consistent with chronic small vessel disease and/or senescent changes. There is no evidence of acute large vessel infarct or intracranial hemorrhage. The paranasal sinuses and mastoid air cells are within normal limits. No skull fracture or scalp hematoma is seen. Radiologist: Bhavin Adamson MD Consultation: A consultation was placed with the hospitalist. The case was discussed and diagnostics were reviewed. The patient was evaluated in the ER for further treatment. Exam and history seem consistent with UTI, generalized weakness and near syncope. Medicine was consulted. She started antibiotics. She was hydrated as above. Patient lives alone. She was unable to care for herself. Her neighbor brought her in. By the evaluation outlined above emergent etiologies such as electrolyte abnormalities, cardiac sources, intracerebral event, toxologic, neurologic, abnormalities blood glucose, metabolic, as well as others were deemed relatively unlikely. The pt informed about the findings as listed above. All questions were answered and pleased with the treatment. The chart was completed utilizing [employer] Speech voice recognition software. Grammatical errors, random word insertions, pronoun errors, and incomplete sentences are an occassional consequence of this system due to software limitations, ambient noise, and hardware issues. Any formal questions or concerns about the content, text, or information contained within the body of this dictation should be directly addressed to the physician study assistant for clarification. Impression & Plan Urinary tract infection, Generalized weakness, Unable to care for self Discharge Plan Visit Data Chief Complaint: Dizziness Stated Complaint: LIGHT HEADED ED Provider: Trish Clarke ED Midlevel Provider: Rosa Jackson Discharge Problem: Urinary tract infection, Generalized weakness, Unable to care for self Patient Disposition: Admitted As Inpatient Condition: Fair Discharge Instructions Interventions: ED Discharge Assessment Last Done: 12/21/21 06:02 Forms Stand Alone Forms: [facility] Prescriptions Prescriptions: No Action furosemide [Lasix] 20 mg tablet 20 mg PO DAILY telmisartan-hydrochlorothiazid 40-12.5 mg tablet 1 tab PO DAILY duloxetine 20 mg capsule,delayed release(DR/EC) 40 mg PO DAILY Unknown Pain Pill/Pain Mgmt 1 tab PO DIRECTED PRN (Reason: Pain) Rx Instructions: UNABLE TO VERIFY THIS MED. Referrals Referrals: Lin Simmons DO [Primary Care Provider] -
[2021-12-21 02:42] LABS: Basophils # (auto) 0.03 K/uL (0-0.2); Basophils % (auto) 0.5 %; Eosinophils % (auto) 3.2 %; Hematocrit (blood only) 36.9 % (34.1-44.9); Hemoglobin 11.2 g/dl (12.0-16.0); Immature Granulocytes # (auto) 0.02 K/uL (0.00-0.02); Immature Granulocytes % (auto) 0.3 %; Lymphocytes % (auto) 23.7 %; Mean Corpuscular Hemoglobin 23.7 pg (25.0-34.0); Mean Corpuscular Hgb Conc 30.4 g/dL (32.0-36.0); Mean Platelet Volume 10.1 fL (9.4-12.3); Monocytes # (auto) 0.55 K/uL (0.24-0.82); Monocytes % (auto) 8.7 %; Neutrophils # (auto) 4.04 K/uL (1.4-6.5); Neutrophils % (auto) 63.6 %; Platelet Count 285 K/uL (130-400); RDW Coefficient of Variation 14.6 % (11.5-14.5); Red Blood Count 4.73 M/uL (3.93-5.22); White Blood Count 6.34 K/ul (4.8-10.8)
[2021-12-21 03:21] LABS: Appearance Urine Clear (Clear); Bacteria Urine Automated 1+ (Negative); Bilirubin Urine Negative (Negative); Blood Urine Negative (Negative); Cast Urine Automated 0 /lpf (0-5); Color Urine Yellow; Epithelial Cell Urine Auto 0-5 /lpf (0-5); Glucose Urine UA Negative (Negative); Ketones Urine Negative (Negative); Leukocyte Esterase Urine 3+ (Negative); Nitrite Urine Negative (Negative); Protein Urine Negative (Negative); RBC Urine Automated 0-4 /hpf (0-4); Specific Gravity Urine 1.006 (1.000-1.030); Urobilinogen Urine Negative (Negative); WBC Urine Automated >30 /hpf (0-5); pH Urine 7.5 (4.5-7.5)
[2021-12-21 03:27] LABS: Alanine Aminotransferase 5 U/L (7-52); Albumin Globulin Ratio 1.5 (0.9-2); Albumin Level 3.9 gm/dl (3.4-5.0); Alkaline Phosphatase 69 U/L (34-104); Anion Gap 9 (3-11); Aspartate Aminotransferase 13 U/L (13-39); BUN Creatinine Ratio 29.9 (10-20); Bilirubin,Total 0.5 mg/dl (0.2-1.0); Blood Urea Nitrogen 23 mg/dl (6-23); Calcium 8.8 mg/dl (8.5-10.1); Carbon Dioxide 30 mmol/L (21-32); Chloride 96 mmol/L (98-107); Creatine Kinase 41 U/L (26-192); Est GFR (Non-African American) 69.9 ml/min; Globulin 2.6 gm/dl (2.5-4.0); Glucose 115 mg/dl (70-99(Fasting)); Potassium 3.9 mmol/L (3.5-5.1); Sodium 135 mmol/L (136-145); Total Protein 6.5 gm/dl (6.0-8.3)
[2021-12-21] MEDS ORDERED: cefTRIAXone SODIUM 2,000 MG/70 ML BAG IV STA (03:38)
--- NOTE | 2021-12-21 03:59 | History & Physical Report ---
Date of Service December 21, 2021 Assessment & Plan (1) Urinary tract infection: Plan: Several days of generalized weakness and decreased PO intake. UA suggestive of infection. Suspect UTI as cause of acute symptoms. Patient not septic. - ordered procalcitonin - pending - s/p Ceftriaxone 2g IV in ED - continue with 1g IV daily - trend urine cx - adjust abx as necessary - added blood cx, although will be collected after abx - s/p NSS 500cc bolus - continue with Normosol-R @80cc/hr - trend CBC tomorrow AM (2) Generalized weakness: Plan: Acute-onset, x3 days. Per neighbor patient has also had increased confusion during this time, although is A+O x3 on my exam. As stated above, most likely due to UTI. No other focal infectious symptoms; in particular no evidence for LE ulcers/cellulitis. No metabolic derangements or changes in medications either. - PT/OT ordered - monitor closely for changes (3) Unable to care for self: Plan: Chronic problem, with neighbor reportedly helping patient with most if not all iADLs. Patient lives alone. - CM consult placed - appreciate recommendations (4) Systolic murmur: Plan: Per my exam, apical systolic murmur that radiates to axilla. ?MR. I do not suspect that this is the cause of her weakness but it may be contributing. - ordered TTE (5) Venous stasis dermatitis of both lower extremities: Plan: Chronic, without evidence for laceration/ulceration or cellulitis. - continue with compression stockings - hold Lasix for now, as patient is currently dry (6) Anemia: Plan: Hgb 11.2 today, microcytic/hypochromic, at baseline. Suspect iron deficiency anemia as patient does not have well-balanced diet. Mostly eats canned soup and sandwiches since her 2 years ago. - ordered iron profile/ferritin/folate/B12/phos for further evaluation (7) HTN (hypertension): Plan: Continue home Telmisartan-HCTZ (8) Depression: Plan: Continue home Duloxetine Plan FEN/GI: regular diet, Normosol-R @80cc/hr DVT Prophylaxis: Heparin SQ Code Status: full code Disposition: med/surg, PT/OT/CM consults pending - may require SNF vs rehab vs LTC on discharge History of Present Illness Chief Complaint: dizziness Primary Care Provider: Lin Simmons DO Lacey Ding is an 86yo female with PMHx significant for HTN, venous insufficiency with bilateral stasis dermatitis (on Lasix), h/o venous stasis ulcers with cellulitis, osteoarthritis, obesity and h/o breast cancer (s/p RTx), who presented to [facility] ED on 12/21 for generalized weakness for several days. Patient reports being too weak to stand up, ambulate or eat/drink - she has been urinating on herself and does not remember the last time she ate or drank. Her neighbor who accompanied her to the ED confirms that she has not been eating or drinking much for several days, and has been more confused than baseline. Patient denies fever/chills, chest pain, palpitations, SOB, N/V, abdominal pain, dysuria, or rash. In the ED the patient had slightly low temp of 36.1C but was otherwise hemodynamically stable on room air. Labs significant for Hgb 11.2 (microcytic/hypochromic, ~baseline). Na 135, Cl 96. BUN 23/Cr 0.77. No leukocytosis. CBC/CMP otherwise WNL. CK and TSH WNL as well. UA with 3+ LE, >30 WBC, 1+ bacteria, although nitrite negative. COVID-[address] head [facility] report pending but does not appear to show acute abnormalities. Patient was given NSS 500cc bolus and CTX 2g IV. Urine sample collected before initiation of abx. Allergies Allergy/AdvReac Type Severity Reaction Status Date / Time No Known Allergies Allergy Verified 12/21/21 02:14 Home Medications Medication Instructions Recorded Confirmed Type furosemide 20 mg tablet (Lasix) 20 mg PO DAILY 04/25/20 12/21/21 History duloxetine 20 mg capsule,delayed 40 mg PO DAILY 12/21/21 12/21/21 History release telmisartan 40 1 tab PO DAILY 12/21/21 12/21/21 History mg-hydrochlorothiazide 12.5 mg tablet tramadol 50 mg tablet 50 mg PO Q6H PRN Pain 12/21/21 12/21/21 History Past Med/Surg History Medical History (Updated 12/21/21 @ 04:57 by Rosa Jackson PA-C) Altered mental status Anemia Cellulitis Depression DVT prophylaxis HX: breast cancer Hyperlipidemia Obesity (BMI 30-39.9) Osteoarthritis Peripheral vascular disease Unable to care for self Venous stasis dermatitis of both lower extremities Surgical History History of appendectomy Family History Other Benign essential HTN DM II (diabetes mellitus, type II), controlled PVD (peripheral vascular disease) Stroke Social History Smoking Status: Never smoker Hx Alcohol Use: No Hx Substance Use: No Preferred Language: Botswanan Communication Ability: Effective 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 NAD. Cooperative. HEENT: Atraumatic, normocephalic. Pulm: CTAB A&P. -wheezes, -rales, -rhonchi. Symmetrical chest rise. No increase work of breathing. No respiratory distress. Cardiac: RRR, 2/6 systolic murmur best auscultated at apex radiating to axilla. Radial pulses intact and symmetrical. No LE edema. Abdominal: soft, non-tender, non-distended, BS x 4 Skin: bilateral venous stasis dermatitis without ulceration/laceration. Both legs are mildly warm although likely at baseline. No surrounding erythema/sw elling. Results & Data Results & Data ([facility]) Vital Signs (Past 12 Hours) Vital Signs Temp Pulse Resp BP Pulse Ox O2 Del Method 12/21/21 03:02 98 Room Air 12/21/21 01:02 94 Room Air 12/21/21 01:33 98 Room Air 12/21/21 01:16 36.1 C L 71 20 136/52 L 99 Room Air Supervising Physician Co-Signing Physician Notes Attending addendum: I have physically seen this patient, have supervised the medical residents activities, and agree with the H&P unless as otherwise noted. Assessment and Plan: Urinary tract infection- Follow urine culture and sensitivities Ceftriaxone 2 g IV daily Status post 500 cc normal saline bolus from the ED Normosol at 80 mils per hour x1 L Follow blood cultures General weakness and debilitation- Consult nephrology social worker, as patient will likely need to have assisted living/[facility] Remaining orders and notations as noted Resident Activity Tracking Resident Involvement: Resident Care Provided Care Provided: Adult Hospital Medicine
[2021-12-21 05:05] LABS: Phosphorus 3.4 mg/dl (2.5-4.9)
[2021-12-21 05:22] LABS: Ferritin 9.7 ng/ml (8-388)
[2021-12-21 05:27] LABS: Folate (Folic Acid) 5.68 ng/ml (>5.38)
[2021-12-21] MEDS: NORMOSOL-R 1,000 ML IV SCH ×2 (06:47→18:14)
--- NOTE | 2021-12-21 07:22 | CT Scan Report ---
CT SCAN OF THE BRAIN WITHOUT IV CONTRAST CLINICAL HISTORY: Change in mental status. COMPARISON STUDY: CT of the brain dated 07/21/2018. TECHNIQUE: Unenhanced axial CT scan of the brain is performed from the vertex to the skull base. A do se lowering technique was utilized adhering to the principles of ALARA. CT DOSE: 537.48 mGy.cm FINDINGS: Brain parenchyma: There is age-related involutional change noting mild subcortical and periventricula r microangiopathic disease. There is no hemorrhage, mass effect, or evidence of acute territorial isc hemia by CT criteria. Paredes-white matter differentiation is preserved. No extra-axial fluid collection is seen. Ventricles, sulci, cisterns: Prominent secondary to involutional change. Intracranial vasculature: There is atherosclerotic calcification of the cavernous carotid and vertebr al arteries. Calvarium: Unremarkable. Sinuses and mastoids: The visualized paranasal sinuses are clear. The mastoid air cells are well pneu matized. Orbits: The bony orbits are grossly intact. There are bilateral ocular lens implants. IMPRESSION: There is no hemorrhage, mass effect, or evidence of acute territorial ischemia by CT shelley heaton. ACT 112: Negative or not required by law. Electronically signed by: Leon Mata M.D. 12/21/2021 7:20 AM
[2021-12-21] MEDS ORDERED: IRON SUCROSE 300 MG in SODIUM CHLORIDE 0.9% 250 ML IV ONE (08:00)
--- NOTE | 2021-12-21 08:20 | XRay Report ---
XR chest 1V portable HISTORY: weakness COMPARISON: Chest 07/21/2018. FINDINGS: The lungs are clear. The heart is mildly enlarged. There are dense mitral annulus calcifica tions noted. No evidence for pulmonary edema. No pleural effusions. No pneumothorax. Degenerative sendy nges within the shoulders. Surgical clips within the right breast. IMPRESSION: Mild cardiomegaly. Otherwise, no acute process within the chest. ACT 112: Negative or not required by law. Electronically signed by: Edilson Tejada M.D. 12/21/2021 8:18 AM
[2021-12-21] MEDS ORDERED: NON-FORMULARY MEDICATION (Telmisartan-Hydrochlorothiazid 40-12.5 mg tablet) PO SCH (09:00)
[2021-12-21] MEDS: LOSARTAN/HCTZ 50/12.5MG TAB PO SCH (09:35)
[2021-12-21] MEDS: DULoxetine HCL 20 MG CAP PO SCH (09:35)
[2021-12-21] MEDS: HEPARIN SOD 5,000 UNIT/0.5 ML VIAL SQ SCH ×2 (09:36→21:41)
--- NOTE | 2021-12-21 10:48 | XCELERA ---
[id number]
--- NOTE | 2021-12-21 11:14 | Electrocardiogram Report ---
Test Reason : Blood Pressure : / mmHG Vent. Rate : 076 BPM Atrial Rate : 076 BPM P-R Int : 164 ms QRS Dur : 088 ms QT Int : 404 ms P-R-T Axes : 027 -10 -16 degrees QTc Int : 454 ms Poor data quality, interpretation may be adversely affected Normal sinus rhythm Minimal voltage criteria for LVH, may be normal variant Borderline ECG When compared with ECG of 21-JUL-2018 13:06, No significant change was found Confirmed by Junior Ortega ([id number]) on 12/21/2021 11:14:34 AM Referred By: REFERRED SELF Confirmed By:Junior Ortega
--- NOTE | 2021-12-21 12:20 | Hospitalist Progress Note ---
Date of Service December 21, 2021 Assessment & Plan (1) Urinary tract infection: Plan: Several days of generalized weakness and decreased PO intake, suspected UTI Procalcitonin normal Received empiric Rocephin in ER which was continued on admission Urine culture: Pending Blood culture: No growth to date, collected after antibiotics On Normosol 80 cc/h, clinically slightly volume down with echo on admission hyperdynamic Trend CBC Additional fatigue in the setting of iron deficiency anemia (2) Generalized weakness: Plan: Increased weakness in the setting of suspected UTI, also with iron deficiency anemia Iron 24, TIBC 324, U IBC 300, transferrin saturation 7 with ferritin of 9.7 Venofer x1 ordered Hemoglobin 11.2 COVID-negative PT/OT pending (3) Unable to care for self: Plan: Patient lives alone, neighbor helps with most of activities of daily living. Patient does note some difficulty completing tasks alone, and expresses some concern for memory although denies specific deficits CM consulted, PT/OT pending (4) Systolic murmur: Plan: TTE: Hyperdynamic, EF 70%. No regional wall motion abnormalities. Moderate AAS suspected. (5) Venous stasis dermatitis of both lower extremities: Plan: Chronic, without evidence for laceration/ulceration or cellulitis. - continue with compression stockings -Clinically volume depleted at this time, and echo hyperdynamic on admission Gentle fluid support and clinical volume reassessment daily (6) Anemia: Plan: Hgb 11.2 today, microcytic/hypochromic, at baseline. Suspect iron deficiency anemia as patient does not have well-balanced diet. Mostly eats canned soup and sandwiches since her 2 years ago. -Iron profile deficient with iron saturation less than 10% and ferritin 9 Folate borderline low normal, supplementation ordered Vitamin B12 low, supplementation ordered (7) HTN (hypertension): Plan: Continue home Telmisartan-HCTZ (8) Depression: Plan: Continue home Duloxetine Plan FEN/GI: regular diet, Normosol-R @80cc/hr DVT Prophylaxis: Heparin SQ Code Status: full code Disposition: med/surg, PT/OT/CM consults pending - may require SNF vs rehab vs LTC on discharge Admission and Anticipated Discharge Date Admission Date: December 21, 2021 Tanisha Rahman is seen at the bedside this morning. She reports she lives alone, and has been more tired lately. Is worried about her memory although denies specific complaints just "a little more forgetful sometimes "and wonders if her low iron levels could contribute to this. Denies chest pain, chest pressure, shortness of breath. Does note that she has had several days of feeling overall weaker. No dysuria today. Feels a little bit better than yesterday. No pain at time of assessment. Review of Systems Review of Systems: All systems reviewed & are unremarkable except as noted in Subjective Physical Exam Physical Exam: General: A&Ox3. NAD. Cooperative. HEENT: Atraumatic, normocephalic. Pulm: CTAB A&P. -wheezes, -rales, -rhonchi. Symmetrical chest rise. No increase in work of breathing. No respiratory distress. Cardiac: RRR, systolic murmur present. Radial pulses intact and symmetrical. Abdominal: Nontender, nondistended, soft. BS present. Extremities: Changes of venous stasis in lower extremities bilaterally, no pitting edema Results & Data Results & Data ([facility]) Vital Signs (Past 12 Hours) Vital Signs Temp Pulse Pulse Resp BP BP Pulse Ox 12/21/21 11:01 36.7 C 79 16 135/68 97 12/21/21 10:10 36.3 C L 76 18 114/63 98 12/21/21 09:43 36.7 C 92 H 16 133/57 L 97 12/21/21 07:26 36.6 C 89 18 145/69 H 99 12/21/21 06:00 36.8 C 85 16 134/67 98 12/21/21 06:02 78 18 124/64 98 12/21/21 05:00 16 96 12/21/21 03:02 98 12/21/21 01:02 94 12/21/21 01:33 98 12/21/21 01:16 36.1 C L 71 20 136/52 L 99 O2 Del Method 12/21/21 11:01 Room Air 12/21/21 10:10 Room Air 12/21/21 09:43 Room Air 12/21/21 07:26 Room Air 12/21/21 06:00 Room Air 12/21/21 06:02 Room Air 12/21/21 05:00 Room Air 12/21/21 03:02 Room Air 12/21/21 01:02 Room Air 12/21/21 01:33 Room Air 12/21/21 01:16 Room Air PG Care Time/CCT Total # of Minutes Spent Total Time Spent with Patient: Total time spent is greater than 50% in coordination of care (as documented) at patient's floor/unit and/or counseling patient: Coding Level of Care Code 42706 Subseq Hosp Care Lvl 2 Diagnoses Urinary tract infection N39.0 Generalized weakness R53.1 Unable to care for self Z78.9 Systolic murmur R01.1 Venous stasis dermatitis of both lower extremities I87.2 Anemia D64.9 HTN (hypertension) I10 Depression F32.A
[2021-12-21] MEDS: CYANOCOBALAMIN (B-12) 500 MCG TABLET PO SCH (13:13)
[2021-12-21] MEDS: FOLIC ACID 1 MG TAB PO SCH (13:13)
[2021-12-21] MEDS: ACETAMINOPHEN 325 MG TAB PO PRN (13:51)
[2021-12-21] MEDS: traMADol HCL 50 MG TABLET PO PRN (17:11)
--- NOTE | 2021-12-21 23:59 | Billing Data ---
Date of Service December 21, 2021 Coding Level of Care Code INT OBSERVATION CARE 70M LVL 3
[2021-12-22] MEDS: cefTRIAXone SODIUM 2,000 MG in DEXTROSE 5% 50 ML IV SCH (04:57)
[2021-12-22] MEDS ORDERED: cefTRIAXone SODIUM 1,000 MG in DEXTROSE 5% 50 ML IV SCH (05:00)
[2021-12-22] MEDS: traMADol HCL 50 MG TABLET PO PRN (05:56)
[2021-12-22] MEDS: FOLIC ACID 1 MG TAB PO SCH (08:19)
[2021-12-22] MEDS: HEPARIN SOD 5,000 UNIT/0.5 ML VIAL SQ SCH ×2 (08:19→20:58)
[2021-12-22] MEDS: CYANOCOBALAMIN (B-12) 500 MCG TABLET PO SCH (08:19)
[2021-12-22] MEDS: DULoxetine HCL 20 MG CAP PO SCH (08:19)
[2021-12-22] MEDS: LOSARTAN/HCTZ 50/12.5MG TAB PO SCH (08:20)
[2021-12-22 08:58] LABS: Basophils # (auto) 0.02 K/uL (0-0.2); Basophils % (auto) 0.4 %; Eosinophils # (auto) 0.15 K/uL (0-0.50); Eosinophils % (auto) 2.6 %; Hematocrit (blood only) 35.2 % (34.1-44.9); Hemoglobin 10.9 g/dl (12.0-16.0); Immature Granulocytes # (auto) 0.01 K/uL (0.00-0.02); Immature Granulocytes % (auto) 0.2 %; Lymphocytes # (auto) 1.53 K/uL (1.2-3.4); Lymphocytes % (auto) 26.9 %; Mean Corpuscular Hemoglobin 24.1 pg (25.0-34.0); Mean Corpuscular Volume 77.9 fL (80.0-100.0); Mean Platelet Volume 10.1 fL (9.4-12.3); Monocytes # (auto) 0.47 K/uL (0.24-0.82); Monocytes % (auto) 8.3 %; Neutrophils # (auto) 3.51 K/uL (1.4-6.5); Neutrophils % (auto) 61.6 %; Platelet Count 271 K/uL (130-400); RDW Coefficient of Variation 14.9 % (11.5-14.5); RDW Standard Deviation 41.3 fL (36.4-46.3); Red Blood Count 4.52 M/uL (3.93-5.22); White Blood Count 5.69 K/ul (4.8-10.8)
[2021-12-22 09:18] LABS: BUN Creatinine Ratio 16.4 (10-20); Calcium 8.6 mg/dl (8.5-10.1); Creatinine Clr Calc Pharmacy 63.3 ml/min; Est GFR (African American) 92.2 ml/min; Est GFR (Non-African American) 79.6 ml/min; Potassium 3.4 mmol/L (3.5-5.1)
[2021-12-22] MEDS: ACETAMINOPHEN 325 MG TAB PO PRN (09:53)
--- NOTE | 2021-12-22 14:24 | Hospitalist Progress Note ---
Date of Service December 22, 2021 Assessment & Plan (1) Urinary tract infection: Plan: Several days of generalized weakness and decreased PO intake. UA suggestive of infection. Suspect UTI as cause of acute symptoms. Patient not septic. - ordered procalcitonin - pending - s/p Ceftriaxone 2g IV in ED - continue with 1g IV daily -UC pending. GNB pending speciation -BC no growth to date, these were collected after antibiotic -Trend CBC Discontinue fluids, tolerating diet (2) Generalized weakness: Plan: Acute onset, worsened in the setting of UTI Patient with difficulty completing tasks at home, has assistance from neighbor Patient is resistant to the idea of rehabshe has pets at home, OT notes noted that patient is not safe to be home at this time. PT pending, follow-up based on recommendations. Patient does appear significantly weaker than baseline with poor insight. Attempting to contact family/son as well to clarify home environment and help available (3) Unable to care for self: Plan: See above, CM following (4) Systolic murmur: Plan: TTE: Hyperdynamic, no wall motion abnormalities. Moderate . (5) Venous stasis dermatitis of both lower extremities: Plan: Chronic, without evidence for laceration/ulceration or cellulitis. - continue with compression stockings - hold Lasix for now, as patient is currently dry and hyperdynamic on echo. Encourage p.o. (6) Anemia: Plan: Hemoglobin 11.2 on admission Folate low normal Transferrin saturation 7%, very low Venofer x1 ordered Oral iron q. OD on discharge (7) HTN (hypertension): Plan: Continue home Telmisartan-HCTZ (8) Depression: Plan: Continue home Duloxetine Plan FEN/GI: regular diet, Normosol-R @80cc/hr DVT Prophylaxis: Heparin SQ Code Status: full code Disposition: med/surg, PT/OT/CM. OT does not recommend return home, PT pending. CM following, patient likely unsafe for return home attempting to contact family for additional conversation. Admission and Anticipated Discharge Date Admission Date: December 21, 2021 Subjective Doing well, feels weaker than normal but better than yesterday. No dysuria, frequency, lightheadedness, dizziness, chest pain, chest pressure, fever, chills, sweats, nausea, vomiting, diarrhea today. Reports that she does have difficulty doing things at home but has a neighbor who helps her. Does not wish to go to rehab as she is worried about animals at home, noted that OT recom mended that she is not safe to return home with her current level of function and is awaiting PT eval. Patient is uncomfortable considering rehab, but will work with PT to see where her strength is and discussed based on those recommendations Review of Systems Review of Systems: All systems reviewed & are unremarkable except as noted in Subjective Physical Exam Physical Exam: General: A&Ox3. NAD. Cooperative. HEENT: Atraumatic, normocephalic. Vision and hearing grossly intact Pulm: CTAB A&P. -wheezes, -rales, -rhonchi. Symmetrical chest rise. No increase in work of breathing. No respiratory distress. Cardiac: RRR, systolic murmur present. Radial pulses intact and symmetrical. Abdominal: Nontender, nondistended, soft. BS present. Extremities: Changes of venous stasis in lower extremities bilaterally, no pitting edema Results & Data Results & Data ([facility]) Vital Signs (Past 12 Hours) Vital Signs Temp Pulse Resp BP Pulse Ox O2 Del Method 12/22/21 08:00 36.9 C 70 16 114/63 96 Room Air PG Care Time/CCT Total # of Minutes Spent Total Time Spent with Patient: Total time spent is greater than 50% in coordination of care (as documented) at patient's floor/unit and/or counseling patient: Coding Level of Care Code 11898 Subseq Hosp Care Lvl 2 Diagnoses Urinary tract infection N39.0 Generalized weakness R53.1 Unable to care for self Z78.9 Systolic murmur R01.1 Venous stasis dermatitis of both lower extremities I87.2 Anemia D64.9 HTN (hypertension) I10 Depression F32.A
[2021-12-23] MEDS: cefTRIAXone SODIUM 2,000 MG in DEXTROSE 5% 50 ML IV SCH (04:47)
[2021-12-23] MEDS: DULoxetine HCL 20 MG CAP PO SCH (07:13)
[2021-12-23] MEDS: CYANOCOBALAMIN (B-12) 500 MCG TABLET PO SCH (07:13)
[2021-12-23] MEDS: LOSARTAN/HCTZ 50/12.5MG TAB PO SCH (07:14)
[2021-12-23] MEDS: HEPARIN SOD 5,000 UNIT/0.5 ML VIAL SQ SCH ×2 (07:14→20:44)
[2021-12-23] MEDS: FOLIC ACID 1 MG TAB PO SCH (07:14)
[2021-12-23 08:09] LABS: Basophils # (auto) 0.03 K/uL (0-0.2); Basophils % (auto) 0.6 %; Eosinophils # (auto) 0.14 K/uL (0-0.50); Eosinophils % (auto) 2.6 %; Hematocrit (blood only) 36.3 % (34.1-44.9); Hemoglobin 11.1 g/dl (12.0-16.0); Immature Granulocytes # (auto) 0.02 K/uL (0.00-0.02); Immature Granulocytes % (auto) 0.4 %; Lymphocytes # (auto) 1.41 K/uL (1.2-3.4); Lymphocytes % (auto) 26.3 %; Mean Corpuscular Hemoglobin 23.9 pg (25.0-34.0); Mean Corpuscular Hgb Conc 30.6 g/dL (32.0-36.0); Mean Corpuscular Volume 78.1 fL (80.0-100.0); Monocytes # (auto) 0.49 K/uL (0.24-0.82); Monocytes % (auto) 9.1 %; Neutrophils # (auto) 3.27 K/uL (1.4-6.5); Platelet Count 259 K/uL (130-400); RDW Coefficient of Variation 14.9 % (11.5-14.5); RDW Standard Deviation 41.5 fL (36.4-46.3); Red Blood Count 4.65 M/uL (3.93-5.22); White Blood Count 5.36 K/ul (4.8-10.8)
[2021-12-23 08:37] LABS: BUN Creatinine Ratio 21.3 (10-20); Calcium 8.4 mg/dl (8.5-10.1); Creatinine Clr Calc Pharmacy 69.5 ml/min; Est GFR (African American) 95.1 ml/min; Est GFR (Non-African American) 82.1 ml/min; Potassium 3.7 mmol/L (3.5-5.1)
--- NOTE | 2021-12-23 10:56 | Hospitalist Progress Note ---
Date of Service December 23, 2021 Assessment & Plan (1) Urinary tract infection: Plan: Several days of generalized weakness and decreased PO intake. UA suggestive of infection. Suspect UTI as cause of acute symptoms. Patient not septic. - Currently on Ceftriaxone 2g IV daily - UC w/ pansensitive E. coli - BC no growth to date, these were collected after antibiotic - Trend CBC - Fluids given upfront have been d/c'd (2) Generalized weakness: Plan: Acute onset, worsened in the setting of UTI Patient with difficulty completing tasks at home, has assistance from neighbor Patient is resistant to the idea of rehabshe has pets at home, OT notes noted that patient is not safe to be home at this time. PT advises rehab, pt reluctant but agreeable. Son also supports this. (3) Unable to care for self: Plan: See above, CM following (4) Systolic murmur: Plan: TTE: Hyperdynamic, no wall motion abnormalities. Moderate . (5) Venous stasis dermatitis of both lower extremities: Plan: Chronic, without evidence for laceration/ulceration or cellulitis. - continue with compression stockings - hold Lasix for now, as patient is currently dry and hyperdynamic on echo. Encourage p.o. (6) Anemia: Plan: Hemoglobin 11.2 on admission Folate low normal Transferrin saturation 7%, very low Venofer x1 ordered/given Oral iron q. OD on discharge (7) HTN (hypertension): Plan: Continue home Telmisartan-HCTZ (8) Depression: Plan: Continue home Duloxetine Plan She is medically acceptable/suitable for discharge but requires rehab. Referrals faxed on Friday. Case management following. Only requires 3-5 days of antibiotics as UTI considered uncomplicated. Today faustin 3rd dose. Continue Rocephin x 2 more days. Added Voltaren gel to L knee prn pain (uses biofreeze at home PRN). Plan d/w Dr. Miller. Admission and Anticipated Discharge Date Admission Date: December 21, 2021 Subjective Patient seen on daily rounds this morning. She is resting in bed, reports no new complaints/concerns. Denies cp, dyspnea, n/v/d, f/c, headache, abd pain, or gu symptoms. Hospitalized with UTI and generalized weakness/debility. Therapy recommending rehab, pt reluctant but agreeable to go. Review of Systems Review of Systems: All systems reviewed and are unremarkable except as noted in HPI and below. Denies fever, chills, fatigue, headache, nasal congestion, sore throat, cough, chest pain, shortness of breath, palpitations, orthopnea, PND, abdominal pain, n/v/d, constipation, dysuria, hematuria, frequency, back pain, joint pain or swelling, easy bruising or bleeding, skin lesions or rashes. Physical Exam Physical Exam: GENERAL: 86 yo Well-developed, well-nourished elderly WF. NAD. LUNGS: Clear to auscultation bilaterally. No W/R/R. CARDIOVASCULAR: Regular rate and rhythm. 3-4/6 DONTRELL ABDOMEN: Soft, non-tender and non-distended. BS normoactive x 4 quad. EXTREMITIES: No edema. Non-tender. Peripheral pulses +2/4. NEUROLOGIC: A&O x3. Nonfocal PSYCHIATRIC: Cooperative. Appropriate mood and affect. SKIN: Warm, dry, intact. No rashes or lesions. Results & Data Results & Data ([facility]) Vital Signs (Past 12 Hours) Vital Signs Temp Pulse Resp BP Pulse Ox O2 Del Method 12/23/21 07:39 36.8 C 69 16 125/67 97 Room Air Laboratory Results 12/23/21 07:55 12/23/21 07:55 PG Care Time/CCT Total # of Minutes Spent Total Time Spent with Patient: Total time spent is greater than 50% in coordination of care (as documented) at patient's floor/unit and/or counseling patient: Coding Level of Care Code 71653 Subseq Hosp Care Lvl 2 Diagnoses Urinary tract infection N39.0 Generalized weakness R53.1 Unable to care for self Z78.9 Systolic murmur R01.1 Venous stasis dermatitis of both lower extremities I87.2 Anemia D64.9 HTN (hypertension) I10 Depression F32.A
[2021-12-23] MEDS ORDERED: DICLOFENAC SOD 1% GEL 100 GM TUBE EXT PRN (11:15)
[2021-12-24] MEDS: cefTRIAXone SODIUM 2,000 MG in DEXTROSE 5% 50 ML IV SCH (05:09)
[2021-12-24] MEDS: DULoxetine HCL 20 MG CAP PO SCH (08:29)
[2021-12-24] MEDS: LOSARTAN/HCTZ 50/12.5MG TAB PO SCH (08:29)
[2021-12-24] MEDS: CYANOCOBALAMIN (B-12) 500 MCG TABLET PO SCH (08:29)
[2021-12-24] MEDS: HEPARIN SOD 5,000 UNIT/0.5 ML VIAL SQ SCH ×2 (08:30→21:36)
[2021-12-24] MEDS: FOLIC ACID 1 MG TAB PO SCH (08:31)
--- NOTE | 2021-12-24 11:31 | Hospitalist Progress Note ---
Date of Service December 24, 2021 Assessment & Plan (1) Urinary tract infection: Plan: Several days of generalized weakness and decreased PO intake. UA suggestive of infection. Suspect UTI as cause of acute symptoms. Patient not septic. - Currently on Ceftriaxone 2g IV daily, thus far has received 4 doses, would treat for at least 5 days - UC w/ pansensitive E. coli - BC no growth to date, these were collected after antibiotic - Fluids given upfront have been d/c'd (2) Generalized weakness: Plan: Acute onset, worsened in the setting of UTI Patient with difficulty completing tasks at home, has assistance from neighbor Patient is resistant to the idea of rehabshe has pets at home, OT notes noted that patient is not safe to be home at this time. PT advises rehab, pt reluctant but agreeable. Son also supports this. (3) Unable to care for self: Plan: See above, CM following (4) Systolic murmur: Plan: TTE: Hyperdynamic, no wall motion abnormalities. Moderate . (5) Venous stasis dermatitis of both lower extremities: Plan: Chronic, without evidence for laceration/ulceration or cellulitis. - continue with compression stockings - hold Lasix for now, as patient is currently dry and hyperdynamic on echo. Encourage p.o. (6) Anemia: Plan: Hemoglobin 11.2 on admission Folate low normal Transferrin saturation 7%, very low Venofer x1 ordered/given Oral iron q. OD on discharge (7) HTN (hypertension): Plan: Continue home Telmisartan-HCTZ (8) Depression: Plan: Continue home Duloxetine Plan She is medically acceptable/suitable for discharge but requires rehab. Referrals faxed on Friday. Case management following. Added Voltaren gel to L knee prn pain (uses biofreeze at home PRN). Updated patient's son, Ignacio, via phone on 12/24. Preference to [facility]-will need to contact facilities if we haven't heard by afternoon to f/u from referrals faxed. Plan d/w Dr. Miller. Admission and Anticipated Discharge Date Admission Date: December 21, 2021 Subjective Patient seen on daily rounds this morning. She is resting in bed, reports no new complaints/concerns. Hospitalized with pansensitive E. coli UTI and generalized weakness/debility. Therapy recommending rehab, pt reluctant but agreeable to go. Review of Systems Review of Systems: All systems reviewed and are unremarkable except as noted i n HPI and below. Denies fever, chills, fatigue, headache, nasal congestion, sore throat, cough, chest pain, shortness of breath, palpitations, orthopnea, PND, abdominal pain, n/v/d, constipation, dysuria, hematuria, frequency, back pain, joint pain or swelling, easy bruising or bleeding, skin lesions or rashes. Physical Exam Physical Exam: GENERAL: 86 yo Well-developed, well-nourished elderly WF. NAD. LUNGS: Clear to auscultation bilaterally. No W/R/R. CARDIOVASCULAR: Regular rate and rhythm. 3-4/6 DONTRELL ABDOMEN: Soft, non-tender and non-distended. BS normoactive x 4 quad. EXTREMITIES: No edema. Non-tender. Peripheral pulses +2/4. NEUROLOGIC: A&O x3. Nonfocal PSYCHIATRIC: Cooperative. Appropriate mood and affect. SKIN: Warm, dry, intact. No rashes or lesions. Results & Data Results & Data ([facility]) Vital Signs (Past 12 Hours) Vital Signs Temp Pulse Resp BP Pulse Ox O2 Del Method 12/24/21 07:13 37.6 C H 64 16 115/53 L 97 Room Air PG Care Time/CCT Total # of Minutes Spent Total Time Spent with Patient: Total time spent is greater than 50% in coordination of care (as documented) at patient's floor/unit and/or counseling patient: Coding Level of Care Code 00477 Subseq Hosp Care Lvl 2 Diagnoses Urinary tract infection N39.0 Generalized weakness R53.1 Unable to care for self Z78.9 Systolic murmur R01.1 Venous stasis dermatitis of both lower extremities I87.2 Anemia D64.9 HTN (hypertension) I10 Depression F32.A
[2021-12-25] MEDS: cefTRIAXone SODIUM 2,000 MG in DEXTROSE 5% 50 ML IV SCH (04:46)
[2021-12-25] MEDS: LOSARTAN/HCTZ 50/12.5MG TAB PO SCH (08:56)
[2021-12-25] MEDS: DULoxetine HCL 20 MG CAP PO SCH (08:56)
[2021-12-25] MEDS: FOLIC ACID 1 MG TAB PO SCH (08:57)
[2021-12-25] MEDS: CYANOCOBALAMIN (B-12) 500 MCG TABLET PO SCH (08:57)
[2021-12-25] MEDS: HEPARIN SOD 5,000 UNIT/0.5 ML VIAL SQ SCH ×2 (09:43→19:56)
[2021-12-25] MEDS ORDERED: COVID-19 VACC, TRIS(PFIZER)/PF 30 MCG/0.3 ML VIAL IM ONE (12:49)
--- NOTE | 2021-12-25 12:51 | Hospitalist Progress Note ---
Date of Service December 25, 2021 Assessment & Plan (1) Urinary tract infection: Plan: Several days of generalized weakness and decreased PO intake. UA suggestive of infection. Suspect UTI as cause of acute symptoms. Patient not septic. - Currently on Ceftriaxone 2g IV daily - UC w/ pansensitive E. coli - BC no growth to date, these were collected after antibiotic - Fluids given upfront have been d/c'd - Completes course of Ceftriaxone today (12/25) (2) Generalized weakness: Plan: Acute onset, worsened in the setting of UTI Patient with difficulty completing tasks at home, has assistance from neighbor Patient is resistant to the idea of rehabshe has pets at home, OT notes noted that patient is not safe to be home at this time. PT advises rehab, pt reluctant but agreeable. Son also supports this. [facility] has accepted, bed available for 12/26, needs second covid booster, both pt and son consent to this (3) Unable to care for self: Plan: See above, CM following (4) Systolic murmur: Plan: TTE: Hyperdynamic, no wall motion abnormalities. Moderate . (5) Venous stasis dermatitis of both lower extremities: Plan: Chronic, without evidence for laceration/ulceration or cellulitis. - continue with compression stockings - hold Lasix for now, as patient is currently dry and hyperdynamic on echo. Encourage p.o. (6) Anemia: Plan: Hemoglobin 11.2 on admission Folate low normal Transferrin saturation 7%, very low Venofer x1 ordered/given Oral iron q. OD on discharge (7) HTN (hypertension): Plan: Continue home Telmisartan-HCTZ (8) Depression: Plan: Continue home Duloxetine Plan She is medically acceptable/suitable for discharge to [facility] on 12/26. COVID booster ordered. Plan d/w Dr. Miller. Admission and Anticipated Discharge Date Admission Date: December 21, 2021 Subjective Patient seen on daily rounds this morning. She is currently in bedside chair, seems much more pleasant and cooperative today regarding going to rehab. She has no complaints. Review of Systems Review of Systems: All systems reviewed and are unremarkable except as noted in HPI and below. Denies fever, chills, fatigue, headache, nasal congestion, sore throat, cough, chest pain, shortness of breath, palpitations, orthopnea, PND, abdominal pain, n/v/d, constipation, dysuria, hematuria, frequency, back pain, joint pain or swelling, easy bruising or bleeding, skin lesions or rashes. Physical Exam Physical Exam: GENERAL: 86 yo Well-developed, well-nourished elderly WF. NAD. LUNGS: Clear to auscultation bilaterally. No W/R/R. CARDIOVASCULAR: Regular rate and rhythm. 3/6 DONTRELL ABDOMEN: Soft, non-tender and non-distended. BS normoactive x 4 quad. EXTREMITIES: No edema. Non-tender. Peripheral pulses +2/4. NEUROLOGIC: A&O x3. Nonfocal PSYCHIATRIC: Cooperative. Appropriate mood and affect. SKIN: Warm, dry, intact. No rashes or lesions. Results & Data Results & Data ([facility]) Vital Signs (Past 12 Hours) Vital Signs Temp Pulse Resp BP Pulse Ox O2 Del Method 12/25/21 08:49 84 118/66 12/25/21 07:41 36.6 C 73 16 113/66 97 Room Air PG Care Time/CCT Total # of Minutes Spent Total Time Spent with Patient: Total time spent is greater than 50% in coordination of care (as documented) at patient's floor/unit and/or counseling patient: Coding Level of Care Code 01982 Subseq Hosp Care Lvl 2 Diagnoses Urinary tract infection N39.0 Generalized weakness R53.1 Unable to care for self Z78.9 Systolic murmur R01.1 Venous stasis dermatitis of both lower extremities I87.2 Anemia D64.9 HTN (hypertension) I10 Depression F32.A
[2021-12-26] MEDS: DULoxetine HCL 20 MG CAP PO SCH (08:36)
[2021-12-26] MEDS: FOLIC ACID 1 MG TAB PO SCH (08:36)
[2021-12-26] MEDS: CYANOCOBALAMIN (B-12) 500 MCG TABLET PO SCH (08:36)
[2021-12-26] MEDS: LOSARTAN/HCTZ 50/12.5MG TAB PO SCH (08:36)
[2021-12-26] MEDS: HEPARIN SOD 5,000 UNIT/0.5 ML VIAL SQ SCH (08:37)
--- NOTE | 2021-12-26 13:07 | Discharge Summary ---
Date of Service December 26, 2021 Admission HPI Per Admitting Provider Lacey Ding is an 86yo female with PMHx significant for HTN, venous insufficiency with bilateral stasis dermatitis (on Lasix), h/o venous stasis ulcers with cellulitis, osteoarthritis, obesity and h/o breast cancer (s/p RTx), who presented to [facility] ED on 12/21 for generalized weakness for several days. Patient reports being too weak to stand up, ambulate or eat/drink - she has been urinating on herself and does not remember the last time she ate or drank. Her neighbor who accompanied her to the ED confirms that she has not been eating or drinking much for several days, and has been more confused than baseline. Patient denies fever/chills, chest pain, palpitations, SOB, N/V, abdominal pain, dysuria, or rash. In the ED the patient had slightly low temp of 36.1C but was otherwise hemodynamically stable on room air. Labs significant for Hgb 11.2 (microcytic/hypochromic, ~baseline). Na 135, Cl 96. BUN 23/Cr 0.77. No leukocytosis. CBC/CMP otherwise WNL. CK and TSH WNL as well. UA with 3+ LE, >30 WBC, 1+ bacteria, although nitrite negative. COVID-[address] head [facility] report pending but does not appear to show acute abnormalities. Patient was given NSS 500cc bolus and CTX 2g IV. Urine sample collected before initiation of abx. Principal Diagnosis 1. Urinary tract infection, pansensitive E. coli 2. Debility Discharge Exam GENERAL: 86 yo Well-developed, well-nourished elderly WF. NAD. LUNGS: Clear to auscultation bilaterally. No W/R/R. CARDIOVASCULAR: Regular rate and rhythm. 3/6 DONTRELL ABDOMEN: Soft, non-tender and non-distended. BS normoactive x 4 quad. EXTREMITIES: No edema. Non-tender. Peripheral pulses +2/4. NEUROLOGIC: A&O x3. Nonfocal PSYCHIATRIC: Cooperative. Appropriate mood and affect. SKIN: Warm, dry, intact. No rashes or lesions. Discharge Data Allergies Allergy/AdvReac Type Severity Reaction Status Date / Time No Known Allergies Allergy Verified 12/21/21 02:14 Consultations 12/21/21 03:39 ED Decision to Admit Stat Ordered Studies Spec: [id number] Collected: 12/21/21 Received: 12/21/[address]: Rosa Jackson, [facility] Source: Urine,Straight Cath OV Order: Ordered: Urine Culture Procedure Result Verified Site Urine Culture Final 12/23/21 Organism 1 Escherichia coli [place] Count >100,000 CFU/ml Sens Sensitivities to Follow +Mix Urine Plus Low Counts of Other Mixed Ange E coli RX M.I.C. --- --------- Amox/Clav S <=8/4 Ampicillin S <=8 Amp/Sul S <=8/4 Cefazolin S <=2 Cefepime S <=2 Ceftriaxone S <=1 Ciprofloxacin S <=0.25 Ertapenem S <=0.5 Gentamicin S <=4 Levofloxacin S <=0.5 Meropenem S <=1 Nitrofurantoin S <=32 Tobramycin S <=4 Trimeth/Sulfa S <=2/38 Pip/Tazo S <=16 S = SENSITIVE I = INTERMEDIATE R = RESISTANT Hospital Course (1) Urinary tract infection: Several days of generalized weakness and decreased PO intake. UA suggestive of infection. Suspect UTI as cause of acute symptoms. Patient not septic. - Started on Ceftriaxone 2g IV daily (empirically) - w/ pansensitive E. coli - BC no growth to date, these were collected after antibiotic - Fluids given upfront have been d/c'd - Completed 5 day course of Ceftriaxone on 12/25 (2) Generalized weakness: Acute onset, worsened in the setting of UTI Patient with difficulty completing tasks at home, has assistance from neighbor Patient is resistant to the idea of rehabshe has pets at home, OT notes noted that patient is not safe to be home at this time. PT advises rehab, pt reluctant but agreeable. Son also supports this. [facility], received second booster on 12/25 (3) Unable to care for self: See above, CM following (4) Systolic murmur: TTE: Hyperdynamic, no wall motion abnormalities. Moderate . (5) Venous stasis dermatitis of both lower extremities: Chronic, without evidence for laceration/ulceration or cellulitis. - continue with compression stockings - hold Lasix for now, as patient is currently dry and hyperdynamic on echo. Encourage p.o. (6) Anemia: Hemoglobin 11.2 on admission Folate low normal Transferrin saturation 7%, very low Venofer x1 ordered/given Oral iron q. OD on discharge - Vitamin B12 markedly low at 175-started on supplementation, rx sent (7) HTN (hypertension): Continue home Telmisartan-HCTZ (8) Depression: Continue home Duloxetine Plan She is medically acceptable/suitable for discharge to [facility] today. Auth received and transport set up by case management. Pt received COVID booster on 12/25. Plan has been d/w Dr. Burt who has also seen and evaluated this patient prior to discharge and agrees with aforementioned. Total Time Total Time Spent Total Time Spent (In Minutes): >30 minutes Discharge Plan Discharge Items Patient Disposition: Transfer [facility] Reason For Visit: WEAKNESS, UTI Discharge Diagnosis: urinary tract infection weakness Condition on Discharge: Fair Activity: Resume your previous activity Non-emergency contact: Primary Care Provider Call non-emergency contact if: you have any medication questions Follow-up/Referrals: Lin Simmons DO [Primary Care Provider] - Diet: Regular Addtl Attending Provider Instructions: You were hospitalized with a urinary tract infection for which you completed treatment with IV antibiotics. Due to weakness, you were seen by physical and occupational therapy who felt that you required rehabilitation prior to returning home. Your vitamin b12 level was found to be low which can contribute to weakness and fatigue. You have been started on Vitamin B12 supplementation and a new prescription has been sent to your pharmacy. You will continue with physical and occupational therapy at rehab facility ([facility]). We recommend f/u with your healthcare provider within 1 week. If you have any questions following your discharge, you may contact the nonemergency number listed on your discharge paperwork. Pending Studies at Discharge: No Stand-Alone Forms: My [facility] Skilled Items Patient informed of condition?: Yes DNR: No Discharge Level of Care: Skilled Communicable Disease: No Discharge Prognosis: Stable Lines: None Urinary Catheter: No Medications and DC Order Prescriptions: New cyanocobalamin (vitamin B-12) 500 mcg Tablet 1,000 mcg PO QAM Qty: 60 0RF Continued telmisartan-hydrochlorothiazid 40-12.5 mg tablet 1 tab PO DAILY duloxetine 20 mg capsule,delayed release(/EC) 40 mg PO DAILY tramadol 50 mg Tablet 50 mg PO Q6H PRN (Reason: Pain) Discontinued furosemide [Lasix] 20 mg tablet 20 mg PO DAILY Discharge Orders: Discharge Order (Routine); Ordered 12/26/21 Ordered By: Annabel Dailey Admission Data Admit Date/Time: 12/21/21 04:27 Attending Provider: Devan Burt Admit Provider: Lazarus Richard Primary Care Provider: Lin Simmons Other Providers: Kobi Yoder ; Kris Martin Coding Level of Care Code D/C DAY MANAGEMENT >30 MINS Diagnoses Urinary tract infection N39.0 Generalized weakness R53.1 Unable to care for self Z78.9 Systolic murmur R01.1 Venous stasis dermatitis of both lower extremities I87.2 Anemia D64.9 HTN (hypertension) I10 Depression F32.A
== END 2021-12-26 14:56 | DRG 690 ==
LOC: ED 01:02 → 3E 04:27 → INTOOBSV 04:27 → SUATTDRO 04:27 → 3E 06:02